=== PATIENT | female | born 1945 | race Caucasian/White ===

== ENCOUNTER 2016-09-07 11:10 | Emergency (ER) | payer MEDICARE ==
[2016-09-07] VITALS (12 sets, daily range): BP systolic 170–213; BP diastolic 65–83; PULSE 50–63; RESP 16–20; TEMP 97.7; O2SAT 95–100
[~2016-09-07] VITALS: Ht 154.9 cm; Wt 69.0 kg
[~2016-09-07 11:10] MED LIST: CLAR10TA7 PO; ESTR1TAB12 PO; LISI40TA PO; LOVA40TA PO; MACR100C PO; PROP1TAB66 PO; RANI150T PO
[2016-09-07] MEDS ORDERED: PROP10TA6 PO (13:21)
[2016-09-07] MEDS ORDERED: FLUT1SPR5 EACH NARE (13:21)
[2016-09-07] MEDS ORDERED: RANI150T PO (13:21)
[2016-09-07] MEDS ORDERED: LISI40TA PO (13:21)
[2016-09-07] MEDS ORDERED: LOVA40TA PO (13:21)
[2016-09-07] MEDS ORDERED: ESTR1 PO (13:21)
[2016-09-07] MEDS ORDERED: CLAR10CA3 PO (13:21)
[2016-09-07] MEDS ORDERED: ONDANSETRON ODT 4 MG TAB PO ONE (14:45)
[2016-09-07] MEDS ORDERED: cloNIDine HCL 0.1 MG TAB PO ONE ×2 (14:45→15:45)
[2016-09-07] MEDS ORDERED: ACETAMINOPHEN/HYDROcodone 325 MG/5 MG TAB PO ONE (15:45)
[2016-09-07] MEDS ORDERED: MECL-62 PO (15:52)
[2016-09-07] MEDS ORDERED: ZOFR4TAB PO (15:52)
--- NOTE | 2016-09-07 15:53 | PD ---
HPI Chief Complaint: Dizziness Time Seen by Provider: 13:29 Travel History International Travel<30 days: No Contact w/Intl Traveler<30days: No Traveled to known affect area: No History of Present Illness HPI Patient presents with dizziness when she gets up from a seated or laying position. States she feels as if the room is spinning about her. Denies any chest pain shortness of breath urinary or bowel symptoms. Denies any recent illness. States she had associated mild nausea. No history of vertigo. Taking fluids well. PFSH Past Medical History Cardiovascular Problems: Yes (HTN ) High Cholesterol: Yes Chest Pain: Yes Diminished Hearing: No Gastrointestinal Disorders: Yes (GERD) GERD: Yes Hypertension: Yes Neurologic: Yes (BRAIN ANEURYSM ) Respiratory: Yes (SEASONAL ALLERGIES) Immunizations Current: No Migraines: Yes ?: Not Menopausal: Yes : 0 Para: 0 Miscarriage: 0 : 0 Past Surgical History Ear Surgery: Yes ([facility] EAR - 1979 ) Gynecologic Surgery: Yes (COMPLETE HYSTERECTOMY) Hysterectomy: Yes (15 YEARS AGO) Tonsillectomy: Yes Social History Alcohol Use: No Tobacco Use: No Substance Use: No Allergies-Medications (Allergen,Severity, Reaction): Coded Allergies: Erythromycin (Verified Allergy, Severe, RASH, 09/07/16) Sulfa (Verified Allergy, Severe, RASH, 09/07/16) Imitrex (Verified Allergy, Unknown, 09/07/16) Adhesives (Verified Adverse Reaction, Severe, "REDDENED SKIN", 09/07/16) Tetanus Toxoid (Verified Adverse Reaction, Severe, INJECTION SITE SWELLS, 09/07/16) Reported Meds & Prescriptions Reported Meds & Active Scripts Active Reported Claritin (Loratadine) 10 Mg Cap 10 Mg PO DAILY Estrace (Estradiol) 1 Mg Tab 1 Mg PO DAILY Ranitidine (Ranitidine HCl) 150 Mg Tab 150 Mg PO BID Flonase Nasal [place] (Fluticasone Nasal [place]) 50 Mcg/Act [place] 50 Mcg EACH NARE BID Propranolol (Propranolol HCl) 10 Mg Tab 10 Mg PO Q12HR Lovastatin 40 Mg Tab 80 Mg PO DAILY Lisinopril 40 Mg Tab 40 Mg PO DAILY Review of Systems HENT: Positive: Vertigo Gastrointestinal: Positive: Nausea Physical Exam Narrative GENERAL: Well-nourished, well-developed patient. SKIN: Warm and dry. HEAD: Normocephalic. EYES: No scleral icterus. No injection or drainage. NECK: Supple, trachea midline. No JVD or lymphadenopathy. CARDIOVASCULAR: Regular rate and rhythm without murmurs, gallops, or rubs. RESPIRATORY: Breath sounds equal bilaterally. No accessory muscle use. GASTROINTESTINAL: Abdomen soft, non-tender, nondistended. MUSCULOSKELETAL: No cyanosis, or edema. BACK: Nontender without obvious deformity. No CVA tenderness. Data Data Last Documented VS Vital Signs Date Time Temp Pulse Resp B/P Pulse Ox O2 Delivery O2 Flow Rate FiO2 09/07/16 15:18 63 18 199/70 98 Room Air 09/07/16 11:23 97.7 Orders Ecg Monitoring (09/07/16 13:22) Oximetry (09/07/16 13:22) Blood Pressure (09/07/16 13:22) Ondansetron Odt (Zofran Odt) (09/07/16 14:45) Clonidine (Catapres) (09/07/16 14:45) Clonidine (Catapres) (09/07/16 15:45) Acetamin-Hydrocod 325-5 Mg ([place] 5-325 (09/07/16 15:45) MDM Medical Decision Making Medical Screen Exam Complete: Yes Emergency Medical Condition: Yes Differential Diagnosis BPV, urgent hypertension, headache Narrative Course Assessment and plan discussed with patient and at bedside Physician Communication Physician Communication Case discussed and care transferred to Dr Webster Diagnosis Primary Impression: BPV (benign positional vertigo) Qualified Code: H81.10 - BPV (benign positional vertigo), unspecified laterality Additional Impressions: Hypertensive urgency Cephalgia Qualified Code: R51 - Acute nonintractable headache, unspecified headache type Scripts Ondansetron (Zofran)4 Mg Tab4 Mg PO Q6HR PRN (NAUSEA OR VOMITING) #20 TAB Ref 0 Prov:Jesus Cornelius MD 09/07/16 Meclizine 25 Mg Tab25 Mg PO TID PRN (VERTIGO) #30 TAB Ref 0 Prov:Jesus Cornelius MD 09/07/16 Jesus Cornelius MD Sep 07, 2016 15:53
[2016-09-07] MEDS ORDERED: LISINOPRIL 20 MG TAB PO ONE (16:00)
[2016-09-07] MEDS ORDERED: MECLIZINE HCL 25 MG TAB PO ONE (16:00)
--- NOTE | 2016-09-07 16:42 | PD ---
Physical Exam Narrative Received sign out from previous team to follow up with CT brain and reevaluate pt's blood pressure. 71yo F presents with symptoms consistent with vertigo. States she felt room spinning after getting up from lying position along with nausea. Pt also found to have elevated blood pressure here. Initial BP was 213/83. Pt was given zofran, clonidine 0.1mg PO x2, lisinopril 40mg PO, lortab x1, and meclizine 25mg PO by previous team. Pt was evaluated at bedside by me and states that her headache has resolved after lortab. States it felt like her usual headache and it has been about 10 days. States she has history of brain aneurysm but it is so small that surgical intervention was not necessary. Pt follows with neurologist closely and had CT last year. Denies any focal neurologic deficits. CT brain negative. Pt reevaluated at bedside and wants to go home. States her symptoms has resolved and she will follow up with PMD. BP is now 173 /71. Strict return precautions given. Data Data Last Documented VS Vital Signs Date Time Temp Pulse Resp B/P Pulse Ox O2 Delivery O2 Flow Rate FiO2 09/07/16 17:03 50 18 173/71 98 Room Air 09/07/16 11:23 97.7 Orders Ecg Monitoring (09/07/16 13:22) Oximetry (09/07/16 13:22) Blood Pressure (09/07/16 13:22) Ondansetron Odt (Zofran Odt) (09/07/16 14:45) Clonidine (Catapres) (09/07/16 14:45) Clonidine (Catapres) (09/07/16 15:45) Acetamin-Hydrocod 325-5 Mg ([place] 5-325 (09/07/16 15:45) Meclizine (Antivert) (09/07/16 16:00) Lisinopril (Prinivil) (09/07/16 16:00) Ct Brain W/O Iv Contrast(Rout) (09/07/16 ) [facility] Supervised Visit with MOISES: No Diagnosis Primary Impression: BPV (benign positional vertigo) Qualified Code: H81.10 - BPV (benign positional vertigo), unspecified laterality Additional Impressions: Hypertensive urgency Cephalgia Qualified Code: R51 - Acute nonintractable headache, unspecified headache type Patient Instructions: General Instructions Departure Forms: Tests/Procedures Additional Instruction: Please follow up with PMD in 1-2 days. Return to the ED if symptoms worsen. Med/Other Pt SpecificInfo: Prescription(s) given Scripts Ondansetron (Zofran)4 Mg Tab4 Mg PO Q6HR PRN (NAUSEA OR VOMITING) #20 TAB Ref 0 Prov:Jesus Cornelius MD 09/07/16 Meclizine 25 Mg Tab25 Mg PO TID PRN (VERTIGO) #30 TAB Ref 0 Prov:Jesus Cornelius MD 09/07/16 Disposition: 01 DISCHARGE HOME Condition: Stable Nita Webster Sep 07, 2016 16:42
--- NOTE | 2016-09-07 16:57 | RADHPO ---
EXAM DATE/TIME: 09/07/2016 16:37 [facility] COMPARISON: No previous studies available for comparison. INDICATIONS : Cephaliga. RADIATION DOSE: 59.88 CTDIvol (mGy) MEDICAL HISTORY : Cardiovascular disease. SURGICAL HISTORY : None. ENCOUNTER: Initial ACUITY: 1 day PAIN SCALE: 2/10 LOCATION: cranial TECHNIQUE: Multiple contiguous axial images were obtained of the head. Using automated exposure control and adj ustment of the mA and/or kV according to patient size, radiation dose was kept as low as reasonably a chievable to obtain optimal diagnostic quality images. FINDINGS: CEREBRUM: The ventricles are normal for age. No evidence of midline shift, mass lesion, hemorrhage or acute in farction. No extra-axial fluid collections are seen. POSTERIOR FOSSA: The cerebellum and brainstem are intact. The 4th ventricle is midline. The cerebellopontine angle i s unremarkable. EXTRACRANIAL: The visualized portion of the orbits is intact. SKULL: The calvaria is intact. No evidence of skull fracture. CONCLUSION: Negative noncontrast head CT. Michael Stratton MD on September 07, 2016 at 16:54 Board Certified Radiologist. This report was verified electronically.
== END 2016-09-07 17:40 | disposition home or self-care (01) ==
LOC: PHED 11:10
DX: H81.10 Benign paroxysmal vertigo, unspecified ear (principal); R51 Headache; I16.0 Hypertensive urgency; E78.00 Pure hypercholesterolemia, unspecified; K21.9 Gastro-esophageal reflux disease without esophagitis
CPT/HCPCS: 70450

== ENCOUNTER 2016-09-15 22:49 | Emergency (ER) | payer MEDICARE ==
[~2016-09-15] VITALS: Ht 154.9 cm; Wt 70.0 kg
[~2016-09-15 22:49] MED LIST changes: +CLAR10CA3 PO; -CLAR10TA7 PO; +ESTR1 PO; -ESTR1TAB12 PO; +FLUT1SPR5 EACH NARE; -MACR100C PO; +MECL-62 PO; +PROP10TA6 PO; -PROP1TAB66 PO; +ZOFR4TAB PO
[2016-09-15 22:53] VITALS: BP 224/98; PULSE 72; RESP 16; TEMP 97.5; O2SAT 100
[2016-09-15 23:12] VITALS: BP_SYST 210; BP_SYST 243; BP_DIAS 105; BP_DIAS 96; PULSE 63; RESP 18; O2SAT 99
[2016-09-15 23:17] VITALS: O2SAT 98
[2016-09-15 23:33] LABS: AUTOMATED NEUTROPHIL # 5.1 TH/MM3 (1.8-7.7); BASOPHIL # 0.1 TH/MM3 (0-0.2); BASOPHIL % 0.8 % (0.0-2.0); EOSINOPHIL # 0.4 TH/MM3 (0-0.4); EOSINOPHIL % 4.1 % (0.0-4.0); HEMATOCRIT 37.6 % (35.0-46.0); HEMO FLAGS DIFF FINAL; LYMPHOCYTE # 2.9 TH/MM3 (1.0-4.8); MEAN CELL VOLUME 85.2 FL (80.0-100.0); MEAN CORPUSCULAR HEMOGLOBIN 27.7 PG (27.0-34.0); MEAN CORPUSCULAR HGB CONC 32.5 % (32.0-36.0); MONO % 7.5 % (0.0-8.0); NEUT % 55.6 % (16.0-70.0); PLATELET COUNT 229 TH/MM3 (150-450); RED BLOOD COUNT 4.42 MIL/MM3 (4.00-5.30); RED CELL DISTRIBUTION WIDTH 13.9 % (11.6-17.2); WHITE BLOOD COUNT 9.1 TH/MM3 (4.0-11.0)
--- NOTE | 2016-09-15 23:34 | PD ---
HPI Chief Complaint: Abdominal Pain Time Seen by Provider: 23:02 Travel History International Travel<30 days: No Contact w/Intl Traveler<30days: No Traveled to known affect area: No History of Present Illness HPI The patient is a 71 year old female who presents to the [facility] emergency department with a history of 3 different concerns. The first concern that the patient reports his proximal land hour after eating dinner at 5 to 5: 30 PM she began to have abdominal pain. She reports the pain was an aching and burning sensation below the umbilicus that was constant until she got in the car to come to the emergency department. She reports that she did take one Tums prior to arrival. The patient's second concern that she reports today is her elevated blood pressure. The patient arrives with a blood pressure of 200. The patient reports that she was noted to have an elevated blood pressure when she was last seen in the emergency department with dizziness. She reports that her third concern is that she developed dizziness 8 days ago. The patient reports that the dizziness has improved since the onset, however she is concerned that she is intermittently a chest pain since then. She is unsure exactly how many times she's had the chest pain happened. She reports that it is on the left side of the chest. She reports that she has an area there that is tender to the touch intermittently. She denies having any shortness of breath. The patient denies any recent fevers, cough, congestion, neck pain, vomiting, diarrhea, urinary symptoms, or neurologic symptoms. PFSH Past Medical History Narrative Medical The patient's past medical history is significant for acid reflux, hypertension , hyperlipidemia, reported small brain aneurysm that she reports was so small on previous evaluation that it has not required surgery, history of seasonal allergies, migraine headaches. Cardiovascular Problems: Yes (HTN) High Cholesterol: Yes Chest Pain: Yes Diminished Hearing: No Gastrointestinal Disorders: Yes (GERD) GERD: Yes Hypertension: Yes Neurologic: Yes (BRAIN ANEURYSM ) Respiratory: Yes (SEASONAL ALLERGIES) Immunizations Current: No Migraines: Yes Tetanus Vaccination: Unknown Influenza Vaccination: No Menopausal: Yes : 0 Para: 0 Miscarriage: 0 : 0 Past Surgical History Narrative Surgical The patient's past surgical history is significant for left ear surgery, complete hysterectomy, tonsillectomy. Ear Surgery: Yes (L. EAR 1979 ) Gynecologic Surgery: Yes (COMPLETE HYSTERECTOMY) Hysterectomy: Yes Tonsillectomy: Yes Social History Alcohol Use: No Tobacco Use: No Substance Use: No Allergies-Medications (Allergen,Severity, Reaction): Coded Allergies: Erythromycin (Verified Allergy, Severe, RASH, 09/15/16) Sulfa (Verified Allergy, Severe, RASH, 09/15/16) Imitrex (Verified Allergy, Unknown, 09/15/16) Adhesives (Verified Adverse Reaction, Severe, "REDDENED SKIN", 09/15/16) Tetanus Toxoid (Verified Adverse Reaction, Severe, INJECTION SITE SWELLS, 09/15/16) Reported Meds & Prescriptions Reported Meds & Active Scripts Active Reported Claritin (Loratadine) 10 Mg Cap 10 Mg PO DAILY Estrace (Estradiol) 1 Mg Tab 1 Mg PO DAILY Ranitidine (Ranitidine HCl) 150 Mg Tab 150 Mg PO BID Propranolol (Propranolol HCl) 10 Mg Tab 10 Mg PO Q12HR Lovastatin 40 Mg Tab 80 Mg PO DAILY Lisinopril 40 Mg Tab 40 Mg PO DAILY Review of Systems Except as stated in HPI: all other systems reviewed are Neg General / Constitutional: No: Fever Eyes: No: Visual changes HENT: No: Headaches Cardiovascular: Positive: Chest Pain or Discomfort, No: Dyspnea on exertion Respiratory: No: Shortness of Breath Gastrointestinal: Positive: Abdominal Pain, No: Nausea, Vomiting, Diarrhea, Changes in Bowel Habits, Indigestion, Loss of Appetite Genitourinary: No: Dysuria Musculoskeletal: No: Pain Skin: No Rash Neurologic: Positive: Dizziness, No: Weakness, Focal Abnormalities, Coordination Problem, Change in Mentation, Slurred Speech, Sensory Disturbance Psychiatric: No: Depression Endocrine: No: Polydipsia Hematologic/Lymphatic: No: Easy Bruising Physical Exam Narrative General: The patient is a well-developed well-nourished female in no acute distress, initial blood pressure is 224/98, however on my arrival to the room the patient' s blood pressure is 201 systolic. Head and Neck exam: Head is normocephalic atraumatic. Eyes: EOMI, pupils are equal round and reactive to light. Nose: Midline septum with pink mucous membranes Mouth: Dentition unremarkable. Moist mucus membranes. Posterior oropharynx is not erythematous. No tonsillar hypertrophy. Uvula midline. Airway patent. Neck: No palpable lymphadenopathy. No nuchal rigidity. No thyromegaly. Cardiovascular: Regular rate and rhythm without murmurs, gallops, or rubs. No pulse deficit to the extremities. Lungs: Clear to auscultation bilaterally. No wheezes, rhonchi, or rales. Abdomen: Soft, with reported discomfort on deep palpation of the area just below the umbilicus. No other tenderness on palpation of the other quadrants of the abdomen No guarding, rebound, or rigidity. No pulsatile mass on palpation. Normal bowel sounds are audible. No tenderness on palpation of McBurney's point. Negative Lemus's sign. Extremities: No clubbing, cyanosis, or edema. 2+ pulses that palpate equally in all 4 extremities. No calf tenderness on palpation. Back: No spinous process tenderness to palpation. No costovertebral angle tenderness to palpation. Neurologic Exam: Grossly nonfocal. Skin Exam: No rash noted. Intact skin that is warm and dry. Data Data Last Documented VS Vital Signs Date Time Temp Pulse Resp B/P Pulse Ox O2 Delivery O2 Flow Rate FiO2 09/16/16 01:28 158/69 09/16/16 01:07 68 18 100 Room Air 09/15/16 22:53 97.5 Orders Electrocardiogram (09/15/16 23:13) Complete Blood Count With Diff (09/15/16 23:13) Comprehensive Metabolic Panel (09/15/16 23:13) Prothrombin Time / Inr (Pt) (09/15/16 23:13) Act Partial Throm Time (Ptt) (09/15/16 23:13) C-Reactive Protein (Crp) (09/15/16 23:13) Lipase (09/15/16 23:13) Urinalysis - C+S If Indicated (09/15/16 23:13) Iv Access Insert/Monitor (09/15/16 23:13) Ecg Monitoring (09/15/16 23:13) Oximetry (09/15/16 23:13) Lactic Acid (09/15/16 23:13) Creatine Kinase (Cpk) (09/15/16 23:20) Ckmb (Isoenzyme) Profile (09/15/16 23:20) Troponin I (09/15/16 23:20) Chest, Single Ap (09/15/16 23:20) Cta Thor Abd Aorta W Iv C W3d (09/15/16 23:54) Iohexol 350 Inj (Omnipaque 350 Inj) (09/16/16 00:29) Labetalol Inj (Trandate Inj) (09/16/16 00:45) Labs Laboratory Tests Test 09/15/16 09/15/16 09/15/16 00:20 23:20 23:25 Urine Color LIGHT-YELLOW Urine Turbidity CLEAR Urine pH 6.0 Urine Specific [place] 1.006 Urine Protein NEG mg/dL Urine Glucose (UA) NEG mg/dL Urine Ketones NEG mg/dL Urine Occult Blood NEG Urine Nitrite NEG Urine Bilirubin NEG Urine Urobilinogen LESS THAN 2.0 MG/DL Urine Leukocyte Esterase NEG Urine RBC LESS THAN 1 /hpf Urine WBC LESS THAN 1 /hpf Urine Squamous Epithelial 1 /hpf Cells Urine Bacteria MOD /hpf Urine Mucus FEW /lpf Microscopic Urinalysis Comment CULT NOT INDICATED White Blood Count 9.1 TH/MM3 Red Blood Count 4.42 MIL/MM3 Hemoglobin 12.2 GM/DL Hematocrit 37.6 % Mean Corpuscular Volume 85.2 FL Mean Corpuscular Hemoglobin 27.7 PG Mean Corpuscular Hemoglobin 32.5 % Concent Red Cell Distribution Width 13.9 % Platelet Count 229 TH/MM3 Mean Platelet Volume 8.4 FL Neutrophils (%) (Auto) 55.6 % Lymphocytes (%) (Auto) 32.0 % Monocytes (%) (Auto) 7.5 % Eosinophils (%) (Auto) 4.1 % Basophils (%) (Auto) 0.8 % Neutrophils # (Auto) 5.1 TH/MM3 Lymphocytes # (Auto) 2.9 TH/MM3 Monocytes # (Auto) 0.7 TH/MM3 Eosinophils # (Auto) 0.4 TH/MM3 Basophils # (Auto) 0.1 TH/MM3 CBC Comment DIFF FINAL Differential Comment Prothrombin Time 10.3 SEC Prothromb Time International 0.9 RATIO Ratio Activated Partial 26.2 SEC Thromboplast Time Sodium Level 142 MEQ/L Potassium Level 4.0 MEQ/L Chloride Level 107 MEQ/L Carbon Dioxide Level 27.7 MEQ/L Anion Gap 7 MEQ/L Blood Urea Nitrogen 15 MG/DL Creatinine 1.13 MG/DL Estimat Glomerular Filtration 48 ML/MIN Rate Random Glucose 89 MG/DL Calcium Level 8.8 MG/DL Total Bilirubin 0.4 MG/DL Aspartate Amino Transf 17 U/L (AST/SGOT) Alanine Aminotransferase 19 U/L (ALT/SGPT) Alkaline Phosphatase 74 U/L Total Creatine Kinase 56 U/L Troponin I LESS THAN 0.02 NG/ML C-Reactive Protein 1.30 MG/DL Total Protein 6.8 GM/DL Albumin 3.1 GM/DL Lipase 280 U/L Lactic Acid Level 0.7 mmol/L MDM Medical Decision Making Medical Screen Exam Complete: Yes Emergency Medical Condition: Yes Medical Record Reviewed: Yes Interpretation(s) Last Impressions Aorta CTA 09/15/16 [id number] Signed Impressions: Service Date/Time: Friday, September 16, 2016 00:19 - CONCLUSION: 1. Calcified lymph nodes in the mediastinum and right hilar region 2. No evidence for aneurysm or aortic dissection. Case Pederson MD Chest X-Ray 09/15/16 [id number] Signed Impressions: Service Date/Time: Friday, September 16, 2016 00:01 - CONCLUSION: No acute disease. Case Pederson MD Differential Diagnosis Aortic dissection, versus acute coronary syndrome, versus trapped gas, versus dyspepsia Narrative Course During the course of the patients emergency department visit, the patients history, examination, and differential diagnosis were reviewed with the patient. The patient had IV access obtained and blood work sent for analysis. The patient was placed on a diagnostic cardiac sonographer with oximetry and blood pressure monitoring. An EKG was done on arrival. The patient's EKG reveals a sinus rhythm heart rate of 63, no acute ST segment elevation or depression. T waves are inverted in V1. The patient was provided labetalol 10 mg IV times one. The patients laboratory studies were reviewed and remarkable for a CBC that shows a white count of 9.1, hemoglobin 12.2, platelets 229 with 4.1 eosinophils , CMP is remarkable for creatinine 1.13, GFR 48, CPK 56, troponin I less than 0.02, C-reactive protein 1.30, albumin 3.1, lipase 280, lactic acid 0.7, PT PTT unremarkable. Urinalysis shows moderate bacteria, culture indicated, no other acute abnormality. Radiology studies were reviewed and remarkable for a chest x-ray that shows no acute abnormality, no active disease, CTA of the aorta reveals calcified lymph nodes in the mediastinum in the right hilar region, no evidence of aneurysm or aortic dissection, no other acute abnormality. The patient's results were discussed with her, her questions were answered. The patient at this time has no chest pain. The patient was offered admission to the chest pain center for rule out serial cardiac enzyme protocol and stress testing as she cannot recall ever having a stress test in the last several years. The patient reports that she does not have any chest pain currently and prefers to follow-up as an outpatient have her primary care doctor refer her for a stress test. She was instructed that if she has a recurrence of chest pain she should report back immediately to the emergency department. The patient was given a copy of her CT scan results to discuss with her primary care physician. The patient's repeat blood pressure is a 150 systolic. The patient was instructed to follow- up with her primary care physician to discuss changes in her blood pressure medication management. The patient reports having resolution of her abdominal pain. The patient is resting comfortably and feels better, is alert and in no distress. The patients results and examination findings were discussed with the patient. The repeat examination is unremarkable and benign. The history, exam, diagnostic testing, and current condition do not suggest any significant pathology to warrant further testing, continued ED treatment, admission, or surgical evaluation at this point. The vital signs have been stable. The patient does not have uncontrollable pain, intractable vomiting, or other significant symptoms. The patient's condition is stable and appropriate for discharge. The patient will pursue further outpatient evaluation with a primary care physician or other designated or consulting physician as indicated in the discharge instructions. The patient expressed understanding and was agreeable with this plan. Diagnosis Primary Impression: Abdominal pain Qualified Code: R10.30 - Lower abdominal pain Additional Impression: Hypertension Qualified Code: I10 - Essential hypertension Admitting Information Admitting Physician Requests: Admit Referrals: Primary Care Physician 2 days Patient Instructions: Abdominal Pain (ED), Chronic Hypertension (ED), General Instructions Med/Other Pt SpecificInfo: No Change to Meds Disposition: 01 DISCHARGE HOME Condition: Stable Chelly Anguiano MD Sep 15, 2016 23:34
[2016-09-15 23:43] LABS: APTT (PATIENT) 26.2 SEC (24.3-30.1); INTERNATIONAL NORMALIZED RATIO 0.9 RATIO; PROTHROMBIN TIME - PATIENT 10.3 SEC (9.8-11.6)
[2016-09-15 23:57] LABS: ANION GAP 7 MEQ/L (5-15); AST (GOT) 17 U/L (15-37); BICARBONATE 27.7 MEQ/L (21.0-32.0); BLOOD UREA NITROGEN 15 MG/DL (7-18); CHLORIDE 107 MEQ/L (98-107); GLOMERULAR FILTRATION RATE 48 ML/MIN (>89); SODIUM (NA) 142 MEQ/L (136-145)
[2016-09-16] LABS: ALKALINE PHOSPHATASE 74 U/L (45-117); ALT (GPT) 19 U/L (10-53); TOTAL BILIRUBIN ADULT 0.4 MG/DL (0.2-1.0)
[2016-09-16 00:11] LABS: CREATINE KINASE 56 U/L (26-192)
[2016-09-16 00:17] VITALS: BP 191/79; PULSE 78; RESP 18; O2SAT 98
[2016-09-16 00:28] LABS: BACTERIA, URINE MOD /hpf; BLOOD, URINE NEG (NEG); COMMENT (UR) CULT NOT INDICATED; CULTURE IF INDICATED CULT NOT INDICATED; GLUCOSE,URINE NEG (NEG); KETONE, URINE NEG (NEG); MUCUS URINE FEW /lpf (OCC); NITRITE,URINE NEG (NEG); SQUAMOUS EPITHELIAL CELL URINE 1 /hpf (0-5); URINE COLOR LIGHT-YELLOW (YELLW/STRAW)
[2016-09-16] MEDS ORDERED: IOHEXOL 350 MG/ML 10 ML VIAL (for RAD DIAG) IV ONE (00:29)
--- NOTE | 2016-09-16 00:29 | RADRPT ---
EXAM DATE/TIME: 09/16/2016 00:01 [facility] COMPARISON: CHEST SINGLE AP, September 22, 2015, 7:14. INDICATIONS : Abdominal pain. MEDICAL HISTORY : Hypertension. SURGICAL HISTORY : None. ENCOUNTER: Initial ACUITY: 1 day PAIN SCORE: 0/10 LOCATION: Bilateral chest FINDINGS: A single view of the chest demonstrates the lungs to be symmetrically aerated without evidence of mas s, infiltrate or effusion. The cardiomediastinal contours are unremarkable. Osseous structures are intact. CONCLUSION: No acute disease. Case Pederson MD on September 16, 2016 at 0:28 Board Certified Radiologist. This report was verified electronically.
[2016-09-16 00:43] VITALS: BP 194/77
[2016-09-16] MEDS ORDERED: LABETALOL HCL 100 MG/20 ML VIAL IV PUSH ONE (00:45)
--- NOTE | 2016-09-16 00:53 | RADRPT ---
EXAM DATE/TIME: 09/16/2016 00:19 [facility] COMPARISON: CHEST SINGLE AP, September 16, 2016, 0:01. INDICATIONS : Diffuse abdominal pain. IV CONTRAST: 75 cc Omnipaque 350 (iohexol) IV RADIATION DOSE: 5.75 CTDIvol (mGy) MEDICAL HISTORY : Hypertension. Gastroesophageal reflux disease. Vertigo. SURGICAL HISTORY : Hysterectomy. Tonsillectomy. ENCOUNTER: Initial ACUITY: 1 week PAIN SCALE: 2/10 LOCATION: Bilateral abdomen TECHNIQUE: Volumetric scanning was performed using a multi-row detector CT scanner. The data was post processed with a variety of visualization algorithms including full volume maximum intensity projection, multi -planar sliding thin slab reformation, curved planar reformation, and surface rendering techniques. Using automated exposure control and adjustment of the mA and/or kV according to patient size, radiat ion dose was kept as low as reasonably achievable to obtain optimal diagnostic quality images. FINDINGS: LUNGS: There is no consolidation or pneumothorax. No concerning pulmonary nodule is visualized. No pleural fluid is present. MEDIASTINUM: There are calcified subcarinal and right hilar lymph nodes identified. ABDOMEN: The liver and spleen are free of focal defects. The gallbladder and pancreas demonstrate no abnormali ty. The adrenal glands are normal. The kidneys demonstrate no evidence of solid renal mass or hydrone phrosis. No free fluid or abdominal masses are identified. No para-aortic adenopathy is seen. PELVIS: No evidence of free fluid or pelvic mass. No abnormally enlarged inguinal or retroperitoneal lymph no sabino are present. The bladder is unremarkable. There is a bone island in the right sacrum. THORACIC AORTA: The thoracic aortic root is normal with normal branching of the great vessels. There is no evidence of aneurysm or dissection. ABDOMINAL AORTA: The aorta is normal in caliber without aneurysm or dissection. The renal arteries are patent bilater ally. The proximal celiac and superior mesenteric arteries are patent and normal in diameter. PELVIC VESSELS: The internal iliac and external iliac vessels are patent without aneurysm or stenosis. CONCLUSION: 1. Calcified lymph nodes in the mediastinum and right hilar region 2. No evidence for aneurysm or aortic dissection. Case Pederson MD on September 16, 2016 at 0:49 Board Certified Radiologist. This report was verified electronically.
[2016-09-16 01:07] VITALS: BP 163/72; PULSE 68; RESP 18; O2SAT 100
[2016-09-16 01:28] VITALS: BP 158/69
--- NOTE | 2016-09-16 14:40 | EKG ---
Date Performed: 09/15/2016 Time Performed: 23:13:08 PTAGE: 71 years EKG: Sinus rhythm NORMAL ECG PREVIOUS TRACING : 09/22/2015 07.30 Compared to prior tracing no significant change DOCTOR: Steve Greene Interpretating Date/Time 09/16/2016 14:38:58
== END 2016-09-16 01:52 | disposition home or self-care (01) ==
LOC: NEPE 22:49
DX: R10.30 Lower abdominal pain, unspecified (principal); I10 Essential (primary) hypertension; K21.9 Gastro-esophageal reflux disease without esophagitis; R42 Dizziness and giddiness; R07.9 Chest pain, unspecified
CPT/HCPCS: 71010; 71275; 74174; 80053; 81001; 82550; 83605; 83690; 84484; 85025; 85610; 85730; 86140; 93005; 96374; 99284; Q9967

== ENCOUNTER 2016-12-10 22:18 | Emergency (ER) | payer MEDICARE ==
[~2016-12-10] VITALS: Ht 154.9 cm; Wt 70.2 kg
[~2016-12-10 22:18] MED LIST changes: -FLUT1SPR5 EACH NARE; -MECL-62 PO; -ZOFR4TAB PO
[2016-12-10 22:34] VITALS: BP 190/84; PULSE 58; RESP 18; TEMP 98
[2016-12-10] MEDS ORDERED: CLON0.1T PO (22:41)
[2016-12-10 22:57] VITALS: BP 208/98
--- NOTE | 2016-12-10 23:08 | PD ---
HPI Chief Complaint: Hypertension Time Seen by Provider: 22:48 Travel History International Travel<30 days: No Contact w/Intl Traveler<30days: No Traveled to known affect area: No History of Present Illness HPI 71yo F with PMH of HTN, small brain aneurysm, GERD here with multiple complaints. States that after bingo, around 9pm, pt started having periorbital numbness, dizziness and frontal headache. Denies any focal weakness or numbness in extremities or face besides around mouth, chest pain, sob, fever, n/ v, abdominal pain. PFSH Past Medical History Cardiovascular Problems: Yes (HTN, High Chloesterol) High Cholesterol: Yes Chest Pain: Yes Diminished Hearing: No Gastrointestinal Disorders: Yes (GERD) GERD: Yes Hypertension: Yes Neurologic: Yes (BRAIN ANEURYSM ) Respiratory: Yes (SEASONAL ALLERGIES) Immunizations Current: No Migraines: Yes Influenza Vaccination: No Menopausal: Yes : 0 Para: 0 Miscarriage: 0 : 0 Past Surgical History Ear Surgery: Yes (L. EAR - 1979 ) Gynecologic Surgery: Yes Hysterectomy: Yes Tonsillectomy: Yes Social History Alcohol Use: No Tobacco Use: No Substance Use: No Allergies-Medications (Allergen,Severity, Reaction): Coded Allergies: Erythromycin (Verified Allergy, Severe, RASH, 12/10/16) Sulfa (Verified Allergy, Severe, RASH, 12/10/16) Imitrex (Verified Allergy, Unknown, 12/10/16) Adhesives (Verified Adverse Reaction, Severe, "REDDENED SKIN", 12/10/16) Tetanus Toxoid (Verified Adverse Reaction, Severe, INJECTION SITE SWELLS, 12/10/16) Reported Meds & Prescriptions Reported Meds & Active Scripts Active Reported Clonidine (Clonidine HCl) 0.1 Mg Tab 0.1 Mg PO BID Estrace (Estradiol) 1 Mg Tab 1 Mg PO DAILY Ranitidine (Ranitidine HCl) 150 Mg Tab 150 Mg PO BID Propranolol (Propranolol HCl) 10 Mg Tab 10 Mg PO Q12HR Lovastatin 40 Mg Tab 80 Mg PO DAILY Lisinopril 40 Mg Tab 40 Mg PO DAILY Review of Systems Except as stated in HPI: all other systems reviewed are Neg Physical Exam Narrative GENERAL: 71yo F not in distress. SKIN: Focused skin assessment warm/dry. HEAD: Atraumatic. Normocephalic. EYES: Pupils equal and round. No scleral icterus. No injection or drainage. ENT: No nasal bleeding or discharge. Mucous membranes pink and moist. NECK: Trachea midline. No JVD. CARDIOVASCULAR: Regular rate and rhythm. No murmur appreciated. RESPIRATORY: No accessory muscle use. Clear to auscultation. Breath sounds equal bilaterally. GASTROINTESTINAL: Abdomen soft, +Mild suprapubic ttp. States only hurts when I press. No rebound tenderness or guarding. MUSCULOSKELETAL: No obvious deformities. No clubbing. No cyanosis. No edema. NEUROLOGICAL: Awake and alert. No obvious cranial nerve deficits. Motor grossly within normal limits. Normal speech. PSYCHIATRIC: Appropriate mood and affect; insight and judgment normal. Data Data Last Documented VS Vital Signs Date Time Temp Pulse Resp B/P Pulse Ox O2 Delivery O2 Flow Rate FiO2 12/10/16 23:56 77 147/67 12/10/16 23:40 99 Room Air 12/10/16 22:[address] Brain W/O Iv Contrast(Rout) (12/10/16 ) Electrocardiogram (12/10/16 ) Complete Blood Count With Diff (12/10/16 23:02) Basic Metabolic Panel (Bmp) (12/10/16 23:02) Ckmb (Isoenzyme) Profile (12/10/16 23:02) Troponin I (12/10/16 23:02) Urinalysis - C+S If Indicated (12/10/16 23:02) Hydralazine Inj (Apresoline Inj) (12/10/16 23:15) Orthostatic Blood Pressure (12/10/16 23:45) Labs Laboratory Tests Test 12/10/16 12/10/16 22:50 23:05 Urine Color YELLOW Urine Turbidity CLEAR Urine pH 6.0 Urine Specific [place] 1.006 Urine Protein NEG mg/dL Urine Glucose (UA) NEG mg/dL Urine Ketones NEG mg/dL Urine Occult Blood TRACE Urine Nitrite NEG Urine Bilirubin NEG Urine Leukocyte Esterase NEG Urine RBC 0-3 /hpf Urine Squamous Epithelial 0-5 /hpf Cells Urine Bacteria OCC /hpf Microscopic Urinalysis Comment CULT NOT INDICATED White Blood Count 9.1 TH/MM3 Red Blood Count 4.24 MIL/MM3 Hemoglobin 11.8 GM/DL Hematocrit 36.0 % Mean Corpuscular Volume 84.9 FL Mean Corpuscular Hemoglobin 27.9 PG Mean Corpuscular Hemoglobin 32.9 % Concent Red Cell Distribution Width 13.3 % Platelet Count 234 TH/MM3 Mean Platelet Volume 7.9 FL Neutrophils (%) (Auto) 58.4 % Lymphocytes (%) (Auto) 30.6 % Monocytes (%) (Auto) 6.9 % Eosinophils (%) (Auto) 3.7 % Basophils (%) (Auto) 0.4 % Neutrophils # (Auto) 5.4 TH/MM3 Lymphocytes # (Auto) 2.8 TH/MM3 Monocytes # (Auto) 0.6 TH/MM3 Eosinophils # (Auto) 0.3 TH/MM3 Basophils # (Auto) 0.0 TH/MM3 CBC Comment DIFF FINAL Differential Comment Sodium Level 142 MEQ/L Potassium Level 3.9 MEQ/L Chloride Level 108 MEQ/L Carbon Dioxide Level 25.5 MEQ/L Anion Gap 9 MEQ/L Blood Urea Nitrogen 12 MG/DL Creatinine 1.00 MG/DL Estimat Glomerular Filtration 55 ML/MIN Rate Random Glucose 93 MG/DL Calcium Level 8.5 MG/DL Total Creatine Kinase 59 U/L Troponin I LESS THAN 0.02 NG/ML MDM Medical Decision Making Medical Screen Exam Complete: Yes Emergency Medical Condition: Yes Interpretation(s) EKG: Sinus bradycardia at 51bpm. Normal axis. No ST segment elevation or depression. No prolonged QTc. Differential Diagnosis Anxiety vs. ICH vs. UTI vs. electrolyte abnormality Narrative Course 71yo F well appearing female here with multiple complaints. Labs reviewed, no leukocytosis. H/H normal. Troponin negative. Creatinine 1.0. UA negative for leukocyte or nitrite. Pt was hypertensive with BP at 208/98. Pt given hydralazine 10mg IV and repeat BP was 166/60. CT brain negative. Pt had headache that started [address] brain is 100% sensitive in r/o SAH. Pt reevaluated at bedside and feels much better. States her symptoms have resolved. Denies any dizziness, numbness around lips or headache. Headache may have been related to elevated blood pressure. Return precautions given. Diagnosis Primary Impression: Elevated blood pressure reading Patient Instructions: General Instructions Departure Forms: Tests/Procedures Additional Instructions: Please follow up with your PMD i n1-2 days. Return to the ED if symptoms worsen. Med/Other Pt SpecificInfo: No Change to Meds Disposition: 01 DISCHARGE HOME Condition: Stable Ericka Websterrema PÉREZ Dec 10, 2016 23:08
[2016-12-10] MEDS ORDERED: hydrALAZINE HCL 20 MG/ML VIAL IV PUSH ONE (23:15)
[2016-12-10 23:17] LABS: AUTOMATED NEUTROPHIL # 5.4 TH/MM3 (1.8-7.7); BASOPHIL % 0.4 % (0.0-2.0); EOSINOPHIL # 0.3 TH/MM3 (0-0.4); EOSINOPHIL % 3.7 % (0.0-4.0); HEMO FLAGS DIFF FINAL; LYMPH % 30.6 % (9.0-44.0); LYMPHOCYTE # 2.8 TH/MM3 (1.0-4.8); MEAN CELL VOLUME 84.9 FL (80.0-100.0); MEAN CORPUSCULAR HEMOGLOBIN 27.9 PG (27.0-34.0); MEAN CORPUSCULAR HGB CONC 32.9 % (32.0-36.0); MONO % 6.9 % (0.0-8.0); NEUT % 58.4 % (16.0-70.0); PLATELET COUNT 234 TH/MM3 (150-450); RED BLOOD COUNT 4.24 MIL/MM3 (4.00-5.30); RED CELL DISTRIBUTION WIDTH 13.3 % (11.6-17.2); WHITE BLOOD COUNT 9.1 TH/MM3 (4.0-11.0)
[2016-12-10 23:18] LABS: BLOOD, URINE TRACE (NEG); GLUCOSE,URINE NEG (NEG); KETONE, URINE NEG (NEG); NITRITE,URINE NEG (NEG)
[2016-12-10 23:25] LABS: URINE COLOR YELLOW (YELLW/STRAW)
[2016-12-10 23:26] LABS: BACTERIA, URINE OCC /hpf; SQUAMOUS EPITHELIAL CELL URINE 0-5 /hpf (0-5)
[2016-12-10 23:27] LABS: COMMENT (UR) CULT NOT INDICATED; CULTURE IF INDICATED CULT NOT INDICATED; RBC, URINE 0-3 /hpf (0-3)
[2016-12-10 23:27] LABS: CHLORIDE 108 MEQ/L (98-107); POTASSIUM 3.9 MEQ/L (3.5-5.1); SODIUM (NA) 142 MEQ/L (136-145)
--- NOTE | 2016-12-10 23:28 | RADHPO ---
EXAM DATE/TIME: 12/10/2016 23:06 [facility] COMPARISON: CT BRAIN W/O CONTRAST, September 07, 2016, 16:37. INDICATIONS : Frontal headache. History of aneurysm. RADIATION DOSE: 60.46 CTDIvol (mGy) MEDICAL HISTORY : Aneurysm, intracranial. Hypertension. Cardiovascular disease SURGICAL HISTORY : Hysterectomy. ENCOUNTER: Initial ACUITY: 1 day PAIN SCALE: 2/10 LOCATION: cranial TECHNIQUE: Multiple contiguous axial images were obtained of the head. Using automated exposure control and adj ustment of the mA and/or kV according to patient size, radiation dose was kept as low as reasonably a chievable to obtain optimal diagnostic quality images. FINDINGS: There is no evidence for intracranial hemorrhage, mass effect, mass lesions, edema, or extra-axial fl uid collections. The visualized bony structures appear intact. The ventricles are normal size for t he patient's age. There are no signs of acute infarction for technique. CONCLUSION: Unremarkable study. Moise Yadav MD on December 10, 2016 at 23:25 Board Certified Radiologist. This report was verified electronically.
[2016-12-10 23:30] LABS: ANION GAP 9 MEQ/L (5-15); BICARBONATE 25.5 MEQ/L (21.0-32.0); BLOOD UREA NITROGEN 12 MG/DL (7-18)
[2016-12-10 23:34] LABS: GLOMERULAR FILTRATION RATE 55 ML/MIN (>89)
[2016-12-10 23:40] VITALS: BP 166/60; PULSE 57; O2SAT 99
[2016-12-10 23:53] LABS: CREATINE KINASE 59 U/L (26-192)
[2016-12-10 23:56] VITALS: BP 147/67; PULSE 77
[2016-12-11 00:12] VITALS: BP 135/55; PULSE 70
--- NOTE | 2016-12-11 15:04 | EKG ---
Date Performed: 12/10/2016 Time Performed: 23:32:02 PTAGE: 71 years EKG: SINUS BRADYCARDIA BORDERLINE ECG NO SIGNIFICANT CHANGE FROM PRIOR ELECTROCARDIOGRAM. PREVIOUS TRACING : 09/15/2016 23.13 DOCTOR: Jn Justin Interpretating Date/Time 12/11/2016 15:02:54
== END 2016-12-11 00:25 | disposition home or self-care (01) ==
LOC: PHED 22:18
DX: I10 Essential (primary) hypertension (principal); R00.1 Bradycardia, unspecified; R51 Headache
CPT/HCPCS: 70450; 80048; 81001; 82550; 84484; 85025; 93005; 96374; 99285; J0360

== ENCOUNTER 2017-06-27 09:55 | Observation (INO) | payer MEDICARE ==
[~2017-06-27] VITALS: Ht 154.9 cm; Wt 67.0 kg
[2017-06-27] VITALS (15 sets, daily range): BP systolic 150–231; BP diastolic 69–92; PULSE 52–62; RESP 14–20; TEMP 98–98.2; O2SAT 97–100
[~2017-06-27 09:55] MED LIST changes: -CLAR10CA3 PO; +CLON0.1T PO
[2017-06-27] MEDS ORDERED: SODIUM CHLORIDE 0.9% FLUSH 10 ML FLUSH IVF PRN (10:30)
[2017-06-27] MEDS ORDERED: ASPIRIN 325 MG TAB PO ONE (10:30)
[2017-06-27 10:48] LABS: AUTOMATED NEUTROPHIL # 4.1 TH/MM3 (1.8-7.7); BASOPHIL % 0.5 % (0.0-2.0); EOSINOPHIL # 0.2 TH/MM3 (0-0.4); EOSINOPHIL % 3.5 % (0.0-4.0); HEMATOCRIT 36.9 % (35.0-46.0); LYMPH % 31.3 % (9.0-44.0); LYMPHOCYTE # 2.2 TH/MM3 (1.0-4.8); MEAN CORPUSCULAR HGB CONC 32.6 % (32.0-36.0); MEAN PLATELET VOLUME 8.6 FL (7.0-11.0); MONO % 6.1 % (0.0-8.0); MONOCYTE # 0.4 TH/MM3 (0-0.9); NEUT % 58.6 % (16.0-70.0); PLATELET COUNT 225 TH/MM3 (150-450); RED BLOOD COUNT 4.29 MIL/MM3 (4.00-5.30); RED CELL DISTRIBUTION WIDTH 13.9 % (11.6-17.2)
[2017-06-27 10:53] LABS: PROTHROMBIN TIME - PATIENT 9.9 SEC (9.8-11.6)
--- NOTE | 2017-06-27 10:56 | RADRPT ---
EXAM DATE/TIME: 06/27/2017 10:32 [facility] COMPARISON: CHEST SINGLE AP, September 16, 2016, 0:01. INDICATIONS : Left chest pain. MEDICAL HISTORY : Aneurysm, intracranial. Hypertension Cardiovascular disease. SURGICAL HISTORY : Hysterectomy. ENCOUNTER: Initial ACUITY: 3 days PAIN SCORE: 6/10 LOCATION: Left chest FINDINGS: A single view of the chest demonstrates the lungs to be symmetrically aerated without evidence of mas s, infiltrate or effusion. The cardiomediastinal contours are unremarkable. Osseous structures are intact. CONCLUSION: No acute disease. Mika Ferrera MD on June 27, 2017 at 10:55 Board Certified Radiologist. This report was verified electronically.
[2017-06-27 10:57] LABS: BICARBONATE 26.6 MEQ/L (21.0-32.0); BLOOD UREA NITROGEN 14 MG/DL (7-18); CALCIUM 8.8 MG/DL (8.5-10.1); CHLORIDE 109 MEQ/L (98-107); CREATININE 1.03 MG/DL (0.50-1.00); GLOMERULAR FILTRATION RATE 53 ML/MIN (>89); GLUCOSE,RANDOM 82 MG/DL (74-106); MAGNESIUM 1.9 MG/DL (1.5-2.5); SODIUM (NA) 141 MEQ/L (136-145)
[2017-06-27 11:01] LABS: TROPONIN I LESS THAN 0.02 NG/ML (0.02-0.05)
[2017-06-27] MEDS ORDERED: SODIUM CHLORIDE 0.9% FLUSH 10 ML FLUSH IV FLUSH PRN (12:30)
--- NOTE | 2017-06-27 12:30 | PD ---
HPI Chief Complaint: Neuro Symptoms/ Deficits Time Seen by Provider: 10:05 Travel History International Travel<30 days: No Contact w/Intl Traveler<30days: No Traveled to known affect area: No History of Present Illness HPI The patient's 9 years old and rest the ER complaining of chest pain on the left side with radiation to the left arm and left jaw. She mentioned to the triage nurse that she has a history of an intracranial aneurysm which is known to be on the left side. The patient reports chest pain on the left side as noted which started 3 days prior while she was in her kitchen. She has no shortness of breath. She reports a family history of coronary artery disease. She has hypertension and hyperlipidemia. She denies history of diabetes. There is no exertional component. There is no pleuritic component. No cough or fever reported. PFSH Past Medical History Cardiovascular Problems: Yes (HTN, High Chloesterol) High Cholesterol: Yes Chest Pain: Yes Diminished Hearing: No Gastrointestinal Disorders: Yes (GERD) GERD: Yes Hypertension: Yes Neurologic: Yes (BRAIN ANEURYSM ) Respiratory: Yes (SEASONAL ALLERGIES) Immunizations Current: No Migraines: Yes Tetanus Vaccination: Unknown ?: Not Menopausal: Yes : 0 Para: 0 Miscarriage: 0 : 0 Past Surgical History Ear Surgery: Yes (LErik EAR - 1979 ) Gynecologic Surgery: Yes Hysterectomy: Yes Tonsillectomy: Yes Social History Alcohol Use: No Tobacco Use: No Substance Use: No Allergies-Medications (Allergen,Severity, Reaction): Coded Allergies: Sulfa (Sulfonamide Antibiotics) (Unverified Allergy, Severe, RASH, ) erythromycin base (Unverified Allergy, Severe, RASH, 06/27/17) sumatriptan (Unverified Allergy, Unknown, 06/27/17) adhesive (Unverified Adverse Reaction, Severe, "REDDENED SKIN", 06/27/17) tetanus toxoid, adsorbed (Unverified Adverse Reaction, Severe, INJECTION SITE SWELLS, 06/27/17) Reported Meds & Prescriptions Reported Meds & Active Scripts Active Reported Estrace (Estradiol) 1 Mg Tab 1 Mg PO DAILY Ranitidine (Ranitidine HCl) 150 Mg Tab 150 Mg PO BID Propranolol (Propranolol HCl) 10 Mg Tab 10 Mg PO Q12HR Lovastatin 40 Mg Tab 80 Mg PO DAILY Lisinopril 40 Mg Tab 40 Mg PO DAILY Review of Systems Except as stated in HPI: all other systems reviewed are Neg General / Constitutional: No: Fever Cardiovascular: Positive: Chest Pain or Discomfort, No: Diaphoresis Physical Exam Narrative GENERAL: 72 -year-old female pleasant well-nourished well-developed SKIN: Focused skin assessment warm/dry. HEAD: Atraumatic. Normocephalic. EYES: Pupils equal and round. No scleral icterus. No injection or drainage. ENT: No nasal bleeding or discharge. Mucous membranes pink and moist. NECK: Trachea midline. No JVD. CARDIOVASCULAR: Regular rate and rhythm. No murmur appreciated. RESPIRATORY: No accessory muscle use. Clear to auscultation. Breath sounds equal bilaterally. GASTROINTESTINAL: Abdomen soft, non-tender, nondistended. Hepatic and splenic margins not palpable. MUSCULOSKELETAL: No obvious deformities. No clubbing. No cyanosis. No edema. NEUROLOGICAL: There is no focal cranial nerve deficit. The motor function is all 4 extremities. Cerebellar function is normal. Speech memory mentation normal. PSYCHIATRIC: Appropriate mood and affect; insight and judgment normal. Data Data Last Documented VS Vital Signs Date Time Temp Pulse Resp B/P (MAP) Pulse Ox O2 Delivery O2 Flow Rate FiO2 06/27/17 10:41 53 06/27/17 10:40 189/77 (114) 06/27/17 10:23 14 100 Room Air 06/27/17 09:57 98.2 Vital signs reviewed Orders Orders Electrocardiogram (06/27/17 10:16) Basic Metabolic Panel (Bmp) (06/27/17 10:16) Ckmb (Isoenzyme) Profile (06/27/17 10:16) Complete Blood Count With Diff (06/27/17 10:16) Magnesium (Mg) (06/27/17 10:16) Prothrombin Time / Inr (Pt) (06/27/17 10:16) Act Partial Throm Time (Ptt) (06/27/17 10:16) Troponin I (06/27/17 10:16) Chest, Single Ap (06/27/17 10:16) Ecg Monitoring (06/27/17 10:16) Bilateral Bp Monitoring (06/27/17 10:16) Iv Access Insert/Monitor (06/27/17 10:16) Oximetry (06/27/17 10:16) Oxygen Administration (06/27/17 10:16) Aspirin (Aspirin) (06/27/17 10:30) Sodium Chloride 0.9% Flush (Ns Flush) (06/27/17 10:30) Activity Bed Rest With Brp (06/27/17 12:27) Cardiac Rhythm .As Directed (06/27/17 12:27) Notify Dr: Other .PRN (06/27/17 12:27) Notify Dr. Parameters (06/27/17 12:27) Resp Oxygen Nasal Cannula (06/27/17 ) Ckmb (Isoenzyme) Profile (06/27/17 12:27) Ckmb (Isoenzyme) Profile (06/27/17 15:27) Troponin I (06/27/17 12:27) Troponin I (06/27/17 15:27) Electrocardiogram (06/27/17 12:27) Electrocardiogram (06/27/17 15:27) ^ Obtain (06/27/17 12:27) Sodium Chloride 0.9% Flush (Ns Flush) (06/27/17 12:30) Sodium Chloride 0.9% Flush (Ns Flush) (06/27/17 21:00) [employer] / Telemetry [id number] (06/27/17 12:27) Admit Order (Ed Use Only) (06/27/17 12:27) Vital Signs (Adult) Q4H (06/27/17 12:27) Labs Laboratory Tests Test 06/27/17 10:30 White Blood Count 7.0 TH/MM3 Red Blood Count 4.29 MIL/MM3 Hemoglobin 12.0 GM/DL Hematocrit 36.9 % Mean Corpuscular Volume 86.0 FL Mean Corpuscular Hemoglobin 28.0 PG Mean Corpuscular Hemoglobin Concent 32.6 % Red Cell Distribution Width 13.9 % Platelet Count 225 TH/MM3 Mean Platelet Volume 8.6 FL Neutrophils (%) (Auto) 58.6 % Lymphocytes (%) (Auto) 31.3 % Monocytes (%) (Auto) 6.1 % Eosinophils (%) (Auto) 3.5 % Basophils (%) (Auto) 0.5 % Neutrophils # (Auto) 4.1 TH/MM3 Lymphocytes # (Auto) 2.2 TH/MM3 Monocytes # (Auto) 0.4 TH/MM3 Eosinophils # (Auto) 0.2 TH/MM3 Basophils # (Auto) 0.0 TH/MM3 CBC Comment DIFF FINAL Differential Comment Prothrombin Time 9.9 SEC Prothromb Time International Ratio 1.0 RATIO Activated Partial Thromboplast Time 24.7 SEC Blood Urea Nitrogen 14 MG/DL Creatinine 1.03 MG/DL Random Glucose 82 MG/DL Calcium Level 8.8 MG/DL Magnesium Level 1.9 MG/DL Sodium Level 141 MEQ/L Potassium Level 4.0 MEQ/L Chloride Level 109 MEQ/L Carbon Dioxide Level 26.6 MEQ/L Anion Gap 5 MEQ/L Estimat Glomerular Filtration Rate 53 ML/MIN Total Creatine Kinase 47 U/L Troponin I LESS THAN 0.02 NG/ML MDM Medical Decision Making Medical Screen Exam Complete: Yes Emergency Medical Condition: Yes Medical Record Reviewed: Yes Differential Diagnosis NSTEMI, unstable angina, coronary vasospasm, PE, PTX, aortic dissection, pericarditis, myocarditis, endocarditis, PNA, esophageal disease, aneurysm, musculoskeletal etiologies, anxiety, cocaine/sympathomimetic abuse Narrative Course CBC & BMP Diagram 06/27/17 10:30 Calcium Level 8.8, Magnesium Level 1.9 EKG shows sinus rhythm with a rate of 52 normal axis and intervals and no ischemic injury pattern The troponin is less than 0.02 The patient given the risk factors including family history hypertension hyperlipidemia and left-sided chest pain and hand involvement jaw involvement stands to benefit from [facility] protocol. Aneurysm on L side. Pt agreeable with plan. Diagnosis Primary Impression: Chest pain Qualified Codes: R07.9 - Chest pain, unspecified Admitting Information Admitting Physician Requests: Observation Tre Lee MD Jun 27, 2017 12:30
[2017-06-27] MEDS ORDERED: ONDANSETRON HCL 4 MG/2 ML VIAL IV PUSH PRN (12:45)
[2017-06-27] MEDS ORDERED: ACETAMINOPHEN 500 MG CPLT PO PRN (12:45)
[2017-06-27] MEDS ORDERED: NITROGLYCERIN 0.4 MG SL 25 TABS/BTL SL PRN (12:45)
--- NOTE | 2017-06-27 13:25 | HHI.HP ---
HPI Primary Care Physician Whit Frazier MD Chief Complaint Chest discomfort History of Present Illness 72 year old female with known hypertension and hyperlipidemia presents to ER for further evaluation of multiple complaints. First complaint is x3 days of intermittent, left anterior chest discomfort, non radiating discomfort, characterized a "tingling, shooting pain." Duration generally "only seconds" and without associated symptoms. Reports noticing shooting pains generally in the evening hours. Mild in severity. No known precipitating or relieving factors. Endorses similar discomfort in the past. Tried Tums without relief as she thought discomfort maybe ingestion. Second complaint x7 days chest tightness. States "it felt like my bra was too tight." Duration all day, each day past week. No known precipitating factors. Relieving factors removing bra, reports discomfort quickly resolved after removing to changing to a sports bra. No associated symptoms of N, V, SOB, or diaphoresis. Denies similar pain in the past. No precipitating or relieving factors of chest tightness. Final complaint includes numbness and tinging of left side of mouth and cheek. Initially numbness occurred intermittent x3 days. She relating numbness to possible elevated bp due to previous similar episodes. Took BP at home and reports 161/52, therefore did not take clonidine PRN she has ordered. Duration of left side numbness has been constant since last evening and persisting. Denies any headache, slurred speech, weakness of extremities, vision changes, or dysphasia. Currently she is chest pain free. Due to duration and multiple complaints, she became concerned and came to ER for further evaluation. Review of Systems General: No fatigue,weakness, fever, chills, or recent illness change in appetite. Has been in her general state of health. HEENT: No [place], no vision changes, no nasal congestion or drainage, no dysphasia CV: As stated above. No current chest pain, tightness, or pressure. RESP: No SOB, cough, wheeze, or recent URI. GI: No nausea, vomiting, bowel changes, diarrhea, constipation, pain, distention. No unintentional weight gain or weight loss. : No dysuria, urgency, frequency EXT: Paraesthesias of left side of mouth and cheek since last evening. No lower leg edema MS: No discomfort, change in ROM NEURO: No change in memory, dizziness, difficulty with balance, LOC, motor/ sensory deficits. History of cerebral aneurysm PSYCH: No anxiety, depression SKIN: No rashes, no concerning lesions Past Family Social History Allergies: Coded Allergies: Sulfa (Sulfonamide Antibiotics) (Unverified Allergy, Severe, RASH, ) erythromycin base (Unverified Allergy, Severe, RASH, 06/27/17) sumatriptan (Unverified Allergy, Unknown, 06/27/17) adhesive (Unverified Adverse Reaction, Severe, "REDDENED SKIN", 06/27/17) tetanus toxoid, adsorbed (Unverified Adverse Reaction, Severe, INJECTION SITE SWELLS, 06/27/17) Past Medical History Hypertension, hyperlipidemia, migraines, brain aneurysm, GERD Past Surgical History Hysterectomy, Left trigger finger sx, Left ear sx. Reported Medications Active Reported Estrace (Estradiol) 1 Mg Tab 1 Mg PO DAILY Ranitidine (Ranitidine HCl) 150 Mg Tab 150 Mg PO BID Propranolol (Propranolol HCl) 10 Mg Tab 10 Mg PO Q12HR Lovastatin 40 Mg Tab 80 Mg PO DAILY Lisinopril 40 Mg Tab 40 Mg PO DAILY Active Ordered Medications Current Medications Medications (Trade) Dose Ordered Sig/Nikolas Route Start Time Stop Time Status Last Admin (NS Flush) 2 ml UNSCH PRN IV FLUSH 06/27/17 12:30 (NS Flush) 2 ml BID IV FLUSH 06/27/17 21:00 (Tylenol) 500 mg Q4H PRN PO 06/27/17 12:45 (Zofran Inj) 4 mg Q6H PRN IV PUSH 06/27/17 12:45 (Nitrostat Sl) 0.4 mg Q5M PRN SL 06/27/17 12:45 (Aspirin) 325 mg DAILY PO 06/28/17 09:00 (Catapres) 0.1 mg ONCE ONCE PO 06/27/17 13:30 06/27/17 13:31 UNV Non-Formulary Medication 40 mg DAILY PO 06/27/17 13:30 UNV Family History Mother [place] in early 60s, age 74 [place]. Brother CABG in his early 50s. Sister age 49 from [place] (possible congenital abnormality). Social History Known hypertension and hyperlipidemia. No known CAD or DM. Lifelong nonsmoker. Denies any alcohol or illegal drug use. . Retired. Active, reports walking x3 daily one mile each walk. Past cardiac testing 10/21/13 Lexiscan-1. No significant reversibility to suggest ischemia. 2. Normal wall motion, EF 60%. 12/04/02 Cardiac catheterization. Conclusions: No significant coronary artery disease. Physical Exam Vital Signs Vital Signs Date Time Temp Pulse Resp B/P (MAP) Pulse Ox O2 Delivery O2 Flow Rate FiO2 06/27/17 10:41 53 06/27/17 10:40 52 189/77 (114) 06/27/17 10:23 55 14 228/92 (137) 100 Room Air 06/27/17 10:23 100 Room Air 06/27/17 09:57 98.2 62 18 231/92 (138) 98 Room Air Physical Exam GENERAL: Alert WN, WD, NAD, pleasant, elderly female HEAD: NC, AT EYES: Sclera clear, conjunctiva without injection, pupils equal and round ENT: Mucous membranes pink and moist, no nasal discharge or bleeding NECK: Supple, no masses, trachea midline CV: RRR, without murmur, rub, gallop, no JVD, S1-S2 no S3-S4. No carotid bruits. RESP: Clear lungs throughout bilateral, no crackles, wheeze, rhonchi, symmetrical chest rise, nonlabored, able to speak in full sentences ABD: Soft, NT, ND, no masses, positive bowel tones EXT: Pulses +24, no dependent edema MS: Normal tone 4 extremities, nontender, no obvious deformities, full range of motion NEURO: CN II through CN XII grossly intact, motor strength 5/5 equally, no facial droop. PSYCH: A+O 3, pleasant affect, appropriate speech, mood, insight and judgment SKIN: Normal turgor, normal texture, no lesions, no rashes, brisk cap refill, even hair distribution Laboratory Laboratory Tests Test 06/27/17 10:30 White Blood Count 7.0 Red Blood Count 4.29 Hemoglobin 12.0 Hematocrit 36.9 Mean Corpuscular Volume 86.0 Mean Corpuscular Hemoglobin 28.0 Mean Corpuscular Hemoglobin Concent 32.6 Red Cell Distribution Width 13.9 Platelet Count 225 Mean Platelet Volume 8.6 Neutrophils (%) (Auto) 58.6 Lymphocytes (%) (Auto) 31.3 Monocytes (%) (Auto) 6.1 Eosinophils (%) (Auto) 3.5 Basophils (%) (Auto) 0.5 Neutrophils # (Auto) 4.1 Lymphocytes # (Auto) 2.2 Monocytes # (Auto) 0.4 Eosinophils # (Auto) 0.2 Basophils # (Auto) 0.0 CBC Comment DIFF FINAL Differential Comment Prothrombin Time 9.9 Prothromb Time International Ratio 1.0 Activated Partial Thromboplast Time 24.7 Blood Urea Nitrogen 14 Creatinine 1.03 Random Glucose 82 Calcium Level 8.8 Magnesium Level 1.9 Sodium Level 141 Potassium Level 4.0 Chloride Level 109 Carbon Dioxide Level 26.6 Anion Gap 5 Estimat Glomerular Filtration Rate 53 Total Creatine Kinase 47 Troponin I LESS THAN 0.02 Result Diagram: 06/27/17 1030 06/27/17 1030 Imaging Last Impressions Chest X-Ray 06/27/17 1016 Signed Impressions: Service Date/Time: Tuesday, June 27, 2017 10:32 - CONCLUSION: No acute disease. Mika Ferrera MD Course EKG NSR, normal axis, no st t segment changes Caprini VTE Risk Assessment Caprini VTE Risk Assessment: Mod/High Risk (score >= 2) Caprini Risk Assessment Model Point Value = 1 Point Value = 2 Point Value = 3 Point Value = 5 Age 41-60 Minor surgery BMI > 25 kg/m2 Swollen legs Varicose veins or History of unexplained or recurrent spontaneous Oral contraceptives or hormone replacement Sepsis (< 1 month) Serious lung disease, including pneumonia (< 1 month) Abnormal pulmonary function Acute myocardial infarction Congestive heart failure (< 1 month) History of inflammatory bowel disease Medical patient at bed rest Age 61-74 Arthroscopic surgery Major open surgery (> 45 min) Laparoscopic surgery (> 45 min) Malignancy Confined to bed (> 72 hours) Immobilizing plaster cast Central venous access Age >= 75 History of VTE Family history of VTE Factor V Leiden Prothrombin [id number] Lupus anticoagulant Anticardiolipin antibodies Elevated serum homocysteine Heparin-induced thrombocytopenia Other congenital or acquired thrombophilia Stroke (< 1 month) Elective arthroplasty Hip, pelvis, or leg fracture Acute spinal cord injury (< 1 month) Prophylaxis Regimen Total Risk Factor Score Risk Level Prophylaxis Regimen 0-1 Low Early ambulation 2 Moderate Order ONE of the following: *Sequential Compression Device (SCD) *Heparin 5000 units SQ BID 3-4 Higher Order ONE of the following medications: *Heparin 5000 units SQ TID *Enoxaparin/Lovenox 40 mg SQ daily (WT < 150 kg, CrCl > 30 mL/min) *Enoxaparin/Lovenox 30 mg SQ daily (WT < 150 kg, CrCl > 10-29 mL/min) *Enoxaparin/Lovenox 30 mg SQ BID (WT < 150 kg, CrCl > 30 mL/min) AND/OR *Sequential Compression Device (SCD) 5 or more Highest Order ONE of the following medications: *Heparin 5000 units SQ TID (Preferred with Epidurals) *Enoxaparin/Lovenox 40 mg SQ daily (WT < 150 kg, CrCl > 30 mL/min) *Enoxaparin/Lovenox 30 mg SQ daily (WT < 150 kg, CrCl > 10-29 mL/min) *Enoxaparin/Lovenox 30 mg SQ BID (WT < 150 kg, CrCl > 30 mL/min) AND *Sequential Compression Device (SCD) Assessment and Plan Assessment and Plan #1 Chest pain-admitted to chest pain center. Rule out with 2 sets of EKG and cardiac enzymes. Seen and evaluated by Dr. Rut De Guzman. After second set of enzymes, EKG, and improvement of hypertension, proceed with nuclear treadmill stress testing. If blood pressure not improved today, cardiac testing will be postponed until tomorrow morning until blood pressure within normal limits. Patient agreeable to plan of care. #2 Hypertension-clonidine 0.1mg PO x1 dose now, continue lisinopril 40 mg QD, continue to monitor. Proceed with nuclear exercise stress testing once SBP at least under 180, with 160 being optimal. #3 Hyperlipidemia-continue lovastatin #4 GERD-continue ranitidine Rupa Hickey Jun 27, 2017 13:25
[2017-06-27] MEDS ORDERED: cloNIDine HCL 0.1 MG TAB PO ONE (13:30)
[2017-06-27] MEDS ORDERED: CLON0.1T PO (14:09)
[2017-06-27] MEDS: LISINOPRIL 20 MG TAB PO SCH (14:15)
[2017-06-27] MEDS ORDERED: cloNIDine HCL 0.1 MG TAB PO PRN (15:00)
[2017-06-27 15:05] LABS: TROPONIN I LESS THAN 0.02 NG/ML (0.02-0.05)
[2017-06-27] MEDS ORDERED: NITROGLYCERIN 0.4 MG SL 25 TABS/BTL SL ONE (15:30)
[2017-06-27] MEDS: PRAVASTATIN SOD 80 MG TAB PO SCH (18:05)
[2017-06-27 18:22] LABS: TROPONIN I LESS THAN 0.02 NG/ML (0.02-0.05)
[2017-06-27] MEDS: amLODIPine BESYLATE 5 MG TAB PO SCH (22:18)
[2017-06-27] MEDS: SODIUM CHLORIDE 0.9% FLUSH 10 ML FLUSH IV FLUSH SCH (22:18)
[2017-06-27] MEDS: FAMOTIDINE 20 MG TAB PO SCH (22:21)
[2017-06-28] VITALS (8 sets, daily range): BP systolic 143–155; BP diastolic 64–74; PULSE 48–68; RESP 16–18; TEMP 97.8–98; O2SAT 96–97
[2017-06-28] MEDS: FAMOTIDINE 20 MG TAB PO SCH (08:30)
[2017-06-28] MEDS: amLODIPine BESYLATE 5 MG TAB PO SCH (08:31)
[2017-06-28] MEDS: LISINOPRIL 20 MG TAB PO SCH (08:31)
[2017-06-28] MEDS: PRAVASTATIN SOD 80 MG TAB PO SCH (08:31)
[2017-06-28] MEDS: SODIUM CHLORIDE 0.9% FLUSH 10 ML FLUSH IV FLUSH SCH (08:32)
[2017-06-28] MEDS ORDERED: ASPIRIN 325 MG TAB PO SCH (09:00)
[2017-06-28] MEDS ORDERED: ALPRAZolam 0.25 MG TAB PO ONE (09:00)
[2017-06-28] MEDS ORDERED: REGADENOSON INJ 0.4 MG/5 ML SYR ONE (09:26)
--- NOTE | 2017-06-28 12:45 | RADRPT ---
EXAM DATE/TIME: 06/28/2017 09:50 [facility] COMPARISON: No previous studies available for comparison. INDICATIONS : Chest pain. Angina. DOSE: 25.3 mCi Tc99m Myoview at stress. 8.8 mCi Tc99m Myoview at rest. 0.4 mg Lexiscan STRESS SYMPTOMS: Chest pounding, head pressure, nausea. EJECTION FRACTION: 67% MEDICAL HISTORY : Hypertension. Gastroesophageal reflux disease. SURGICAL HISTORY : Tonsillectomy. Hysterectomy. ENCOUNTER: Initial ACUITY: 3 days PAIN SCALE: 4/10 LOCATION: Left chest TECHNIQUE: The patient underwent pharmacologic stress with infusion of prescribed dose. Continuous ECG tracing was monitored during stress. Gated SPECT imaging was performed after stress and conventional SPECT i maging was performed at rest. The examination was performed on a SPECT/CT scanner, both attenuation and non-corrected datasets were reviewed. FINDINGS: DISTRIBUTION: The maximum perfused segment at stress is in the anterior wall. PERFUSION STUDY: The pattern of perfusion at stress is within normal limits. GATED STUDY: There is intact wall motion and thickening without hypokinetic or dyskinetic segments. CONCLUSION: No areas of ischemia are seen. RISK CATEGORY: Low (<1% Annual Mortality Rate) Michael Corbin MD on June 28, 2017 at 12:41 Board Certified Radiologist. This report was verified electronically.
--- NOTE | 2017-06-28 13:27 | HHI.DCPOC ---
Discharge Care Plan Diagnosis: (1) Chest pain Goals to Promote Your Health * To prevent worsening of your condition and complications * To maintain your health at the optimal level Directions to Meet Your Goals Take your medications as prescribed Follow your dietary instruction Follow activity as directed Keep your appointments as scheduled Take your immunizations and boosters as scheduled If your symptoms worsen call your PCP, if no PCP go to Urgent Care Center or Emergency Room Smoking is Dangerous to Your Health. Avoid second hand smoke Call the 24-hour hour crisis hotline for domestic abuse at Radha Kiser Jun 28, 2017 13:27
--- NOTE | 2017-06-29 13:17 | EKG ---
Date Performed: 06/27/2017 Time Performed: 17:21:13 PTAGE: 72 years EKG: SINUS BRADYCARDIA BORDERLINE ECG NO SIG CHANGE PREVIOUS TRACING : 06/27/2017 14.29 DOCTOR: Gilbert Summers Interpretating Date/Time 06/29/2017 13:17:32
--- NOTE | 2017-06-29 13:22 | EKG ---
Date Performed: 06/27/2017 Time Performed: 14:29:04 PTAGE: 72 years EKG: SINUS BRADYCARDIA POSSIBLE ANTERIOR MYOCARDIAL INFARCTION BORDERLINE ECG NO CHANGE PREVIOUS TRACING : 06/27/2017 10.27 DOCTOR: Gilbert Summers Interpretating Date/Time 07/01/2017 07:51:53
--- NOTE | 2017-06-29 13:24 | EKG ---
Date Performed: 06/27/2017 Time Performed: 10:27:48 PTAGE: 72 years EKG: SINUS BRADYCARDIA BORDERLINE ECG PREVIOUS TRACING : 12/10/2016 23.32 DOCTOR: Gilbert Summers Interpretating Date/Time 06/29/2017 13:23:47
--- NOTE | 2017-06-29 13:35 | TR ---
Date Performed: 06/28/2017 Time Performed: 10:14:56 DOCTOR: Gilbert Summers DRUG LIST: CLINICAL HISTORY: ANGINA REASON FOR TEST: REASON FOR ENDING: OBSERVATION: CONCLUSION: Lexiscan stress test was performed under standard four minute protocol. Radionuclide was injected one minute prior to ending the test. No electrocardiographic abormalities were present to suggest ischemia. Nuclear imaging and interpretation are pending. COMMENTS:
== END 2017-06-28 15:56 | disposition home or self-care (01) ==
LOC: NEPC 09:55 → NEDA 12:29 → NEPFCDU 16:36
PROVIDERS: ADMIT Internal Medicine Interventional Cardiology; ATTEND Internal Medicine Interventional Cardiology
DX: R07.9 Chest pain, unspecified (principal); Z79.899 Other long term (current) drug therapy; I10 Essential (primary) hypertension; K21.9 Gastro-esophageal reflux disease without esophagitis; E78.5 Hyperlipidemia, unspecified; I67.1 Cerebral aneurysm, nonruptured; Z82.49 Family history of ischemic heart disease and other diseases of the circulatory system; R20.0 Anesthesia of skin
CPT/HCPCS: 71010; 78452; 80048; 82550; 83735; 84484; 85025; 85610; 85730; 93005; 93017; 99285; A9502; G0378; J2785

== ENCOUNTER 2017-08-24 07:53 | Emergency (ER) | payer MEDICARE ==
[~2017-08-24] VITALS: Ht 154.9 cm; Wt 65.8 kg
[2017-08-24 07:58] VITALS: BP 178/81; PULSE 66; RESP 16; TEMP 97.9; O2SAT 96
[2017-08-24] MEDS ORDERED: PENI500T PO (08:09)
--- NOTE | 2017-08-24 08:10 | PD ---
HPI Chief Complaint: ENT Complaint Time Seen by Provider: 08:07 Travel History International Travel<30 days: No Contact w/Intl Traveler<30days: No Traveled to known affect area: No History of Present Illness HPI Patient presents with complaints of sore throat for 2-3 days. Denies nausea vomiting diarrhea or fever. Denies tobacco use. No new rashes. Unknown sick contacts. Denies cough. Denies any chest pain or shortness of breath. PFSH Past Medical History Heart Rhythm Problems: No Cardiac Catheterization: No Cardiovascular Problems: Yes High Cholesterol: Yes Chest Pain: Yes Congestive Heart Failure: No Diabetes: No Diminished Hearing: No Gastrointestinal Disorders: Yes (GERD) GERD: Yes Hypertension: Yes Neurologic: Yes (BRAIN ANEURYSM ) Respiratory: Yes (SEASONAL ALLERGIES) Immunizations Current: No Migraines: Yes Influenza Vaccination: No ?: Not Menopausal: Yes : 0 Para: 0 Miscarriage: 0 : 0 Past Surgical History Coronary Artery Bypass Graft: No Ear Surgery: Yes (L. - 1979 ) Gynecologic Surgery: Yes Hysterectomy: Yes Tonsillectomy: Yes Family History Family Myocardial Infarction: Yes (Siblings and mother) Social History Alcohol Use: No Tobacco Use: No Substance Use: No Allergies-Medications (Allergen,Severity, Reaction): Coded Allergies: Sulfa (Sulfonamide Antibiotics) (Unverified Allergy, Severe, RASH, 08/24/17 ) erythromycin base (Unverified Allergy, Severe, RASH, 08/24/17) sumatriptan (Unverified Allergy, Unknown, 08/24/17) adhesive (Unverified Adverse Reaction, Severe, "REDDENED SKIN", 08/24/17) tetanus toxoid, adsorbed (Unverified Adverse Reaction, Severe, INJECTION SITE SWELLS, 08/24/17) Reported Meds & Prescriptions Reported Meds & Active Scripts Active Reported Clonidine (Clonidine HCl) 0.1 Mg Tab 0.1 Mg PO Estrace (Estradiol) 1 Mg Tab 1 Mg PO DAILY Ranitidine (Ranitidine HCl) 150 Mg Tab 150 Mg PO BID Propranolol (Propranolol HCl) 10 Mg Tab 10 Mg PO Q12HR Lovastatin 40 Mg Tab 80 Mg PO DAILY Lisinopril 40 Mg Tab 40 Mg PO DAILY Review of Systems General / Constitutional: No: Fever Eyes: No: Visual changes HENT: Positive: Sore Throat, No: Headaches Cardiovascular: No: Chest Pain or Discomfort Respiratory: No: Shortness of Breath Gastrointestinal: No: Abdominal Pain Genitourinary: No: Dysuria Musculoskeletal: No: Pain Skin: No Rash Neurologic: No: Weakness Psychiatric: No: Depression Endocrine: No: Polydipsia Hematologic/Lymphatic: No: Easy Bruising Physical Exam Narrative GENERAL: Well-nourished, well-developed patient. SKIN: Focused skin assessment warm/dry. HEAD: Normocephalic. Throat is erythematous no adenopathy no exudate EYES: No scleral icterus. No injection or drainage. NECK: Supple, trachea midline. No JVD or lymphadenopathy. CARDIOVASCULAR: Regular rate and rhythm without murmurs, gallops, or rubs. RESPIRATORY: Breath sounds equal bilaterally. No accessory muscle use. GASTROINTESTINAL: Abdomen soft, non-tender, nondistended. MUSCULOSKELETAL: No cyanosis, or edema. BACK: Nontender without obvious deformity. No CVA tenderness. Data Data Last Documented VS Vital Signs Date Time Temp Pulse Resp B/P (MAP) Pulse Ox O2 Delivery O2 Flow Rate FiO2 08/24/17 07:58 97.9 66 16 178/81 (113) 96 MDM Medical Decision Making Medical Screen Exam Complete: Yes Emergency Medical Condition: Yes Differential Diagnosis Pharyngitis, laryngitis, influenza Narrative Course Assessment and plan discussed with patient at bedside Diagnosis Primary Impression: Pharyngitis Qualified Codes: J02.9 - Acute pharyngitis, unspecified Patient Instructions: General Instructions Additional Instructions: Rest fluids and Motrin, encourage some water gargles, consider vitamin C and zinc to boost immune system, follow-up with PCP, return to emergency room with any onset of new symptoms. Med/Other Pt SpecificInfo: Prescription(s) given Scripts Penicillin V Potassium (Penicillin V Potassium) 500 Mg Tab 500 MG PO Q8H for Infection for 10 Days, #30 TAB 0 Refills Prov: Jesus Cornelius MD 08/24/17 Disposition: 01 DISCHARGE HOME Condition: Good Jesus Cornelius MD Aug 24, 2017 08:10
== END 2017-08-24 08:21 | disposition home or self-care (01) ==
LOC: PHED 07:53
DX: J02.9 Acute pharyngitis, unspecified (principal); E78.00 Pure hypercholesterolemia, unspecified; K21.9 Gastro-esophageal reflux disease without esophagitis; I10 Essential (primary) hypertension; Z79.899 Other long term (current) drug therapy; Z88.2 Allergy status to sulfonamides; Z88.1 Allergy status to other antibiotic agents; Z88.8 Allergy status to other drugs, medicaments and biological substances; Z88.7 Allergy status to serum and vaccine
CPT/HCPCS: 99283

== ENCOUNTER 2018-04-10 16:56 | Observation (INO) ==
--- NOTE | 2018-04-10 17:54 | ED ---
HPI General Chief Complaint: Neuro Symptoms/Deficit Stated Complaint: Numbness In Mouth/Legs/Seen Earlier Time Seen by Provider: 04/10/18 17:45 Source: patient Mode of arrival: ambulatory Limitations: no limitations History of Present Illness HPI Narrative: 73-year-old female patient with history of previous CVA, hypertension, seen earlier today for chest pain, has had previous chest pain workup which was all negative. However, her blood pressure was fairly elevated , and she was given clonidine in the ER, and was released. Patient presents back to the ER today because she states that she went home and started to feel weak, weak in the legs, dizzy, felt like she was going to pass out and really feels like she is not well. She denies any current chest pains, but states she feels like she is not talking quite right and she checked her blood pressure and her systolic blood pressure was 86. Related Data Home Medications Medication Instructions Recorded Confirmed clopidogrel 1 tab PO DAILY 04/10/18 04/10/18 lisinopril 40 mg PO DAILY 04/10/18 04/10/18 lovastatin 80 mg PO QPM 04/10/18 04/10/18 propranolol 10 mg PO BID 04/10/18 04/10/18 ranitidine HCl 1 tab PO BID 04/10/18 04/10/18 Allergies Allergy/AdvReac Type Severity Reaction Status Date / Time erythromycin base Allergy Severe RASH Verified 04/10/18 10:11 Sulfa (Sulfonamide Allergy Severe RASH Verified 04/10/18 10:11 Antibiotics) sumatriptan Allergy Unknown RASH Verified 04/10/18 10:11 adhesive AdvReac Severe "REDDENED Verified 04/10/18 10:11 SKIN" tetanus toxoid, adsorbed AdvReac Severe Hives Verified 04/10/18 10:11 Review of Systems ROS: all other systems reviewed are negative [facility] Medical History Medical History GERD (gastroesophageal reflux disease) (Acute) High cholesterol (Acute) Hx of hysterectomy (Acute) Hypertension (Acute) TIA (transient ischemic attack) (Acute) Social History Social History Substance History: No History of Abuse Second Hand Smoke Exposure: No Smoking Status: Never smoker How Often Do You Have a Drink Containing Alcohol: Never Recent Travel in [facility] within the Last 8 Weeks: No Recent Out of Country Travel within the Last 8 Weeks: No Immunization History Tetanus Immunization: <5 Years Exam Narrative Exam Narrative: GENERAL: Well-developed elderly female patient currently and mild distress. Awake and oriented x3. SKIN: Focused skin assessment warm/dry. HEAD: Atraumatic. Normocephalic. EYES: Pupils equal and round. No scleral icterus. No injection or drainage. ENT: No nasal bleeding or discharge. Mucous membranes pink and moist. NECK: Trachea midline. No JVD. CARDIOVASCULAR: Regular rate and rhythm. No murmur appreciated. RESPIRATORY: No accessory muscle use. Clear to auscultation. Breath sounds equal bilaterally. GASTROINTESTINAL: Abdomen soft, non-tender, nondistended. Hepatic and splenic margins not palpable. MUSCULOSKELETAL: No obvious deformities. No clubbing. No cyanosis. No edema. NEUROLOGICAL: Awake and alert. Mild facial asymmetry. Motor grossly within normal limits. Normal speech. No pronator drift. PSYCHIATRIC: Appropriate mood and affect; insight and judgment normal. Course Initial Documented Vital Signs Temperature 97.9 F 04/10/18 17:00 Pulse Rate 64 04/10/18 17:00 Respiratory Rate 16 04/10/18 17:00 Blood Pressure 107/60 04/10/18 17:00 Pulse Oximetry 97 04/10/18 17:00 Last Documented Vital Signs Temperature 97.9 F 04/10/18 17:00 Pulse Rate 55 L 04/10/18 17:45 Respiratory Rate 16 04/10/18 17:45 Blood Pressure 97/46 L 04/10/18 17:45 Pulse Oximetry 98 04/10/18 17:45 Medical Decision Making [facility] Narrative Medical decision making narrative: Considering that she is returning, feeling worse, and her blood pressure is now dropped, my plan would be to admit her as an observation for further evaluation. Case was discussed with Dr. Migel Berg for admission. Medical Screen Exam Complete: Yes Emergency Medical Condition: Yes Differential Diagnosis Differential Diagnosis: Orthostasis versus overmedication versus TIA versus dysrhythmias Discharge Plan Discharge Disposition Patient Disposition: 30 Still Patient Discharge Condition Condition: Stable Discharge Details Anticipated Discharge Date: 04/10/18 Diagnosis: Atypical chest pain, Hypotension, Near syncope Physicians Team ED Provider: Anika Durbin Primary Care Provider: Primary Care Physici,No Rxs /Orders / Referrals /Forms Prescriptions: No Action lovastatin 40 mg Tablet 80 mg PO QPM RF: 0 clopidogrel 75 mg Tablet 1 tab PO DAILY RF: 0 ranitidine HCl 150 mg Tablet 1 tab PO BID RF: 0 propranolol 20 mg Tablet 10 mg PO BID RF: 0 lisinopril 40 mg Tablet 40 mg PO DAILY RF: 0 Discharge Interventions Interventions: Vital Signs Last Done: 04/10/18 17:45 Status ED Status: With Doctor
--- NOTE | 2018-04-10 18:32 | CT ---
EXAM DATE: 04/10/2018 6:08 PM EDT AGE/SEX: 73 years / Female INDICATIONS: Dizziness. Weakness. CLINICAL DATA: This is the patient's initial encounter. Patient reports that signs and symptoms have been present for 1 day and indicates a pain score of 0/10. MEDICAL/SURGICAL HISTORY: Cerebrovascular disease. Aneurysm, intracranial. Gastroesophageal reflu x disease. Hypertension. Hysterectomy. RADIATION DOSE: 44.65 CTDI (mGy) [place] [facility] [place]. . TECHNIQUE: CT of the head without contrast. Using automated exposure control and adjustment of the mA and/or kV according to patient size, radiation dose was kept as low as reasonably achievable to ob tain optimal diagnostic quality images. DICOM format image data is available electronically for revi ew and comparison. FINDINGS: Cerebrum: The ventricles are normal for age. No evidence of midline shift, mass lesion, hemorrhage or acute infarction. No extraaxial fluid collections are seen. Posterior Fossa: The cerebellum and brainstem are intact. The 4th ventricle is midline. The cerebe llopontine angle is unremarkable. Extracranial: The visualized portion of the orbits is intact. Skull: The calvaria is intact. No evidence of skull fracture. CONCLUSION: Negative noncontrast head CT. . Electronically signed by: Michael Corbin MD 04/10/2018 6:31 PM EDT
--- NOTE | 2018-04-10 19:49 | P.HP ---
History of Present Illness Service: Medicine Primary Care Physician: No Primary Care Physician History of Present Illness: Patient had woken this am and after taking her medications developed left sided chest pain with radiation to her left arm worse when she moved. She stated she also had left jaw pain that was intermittent but was not new for her.She had an Emergency room evaluation that was negative for cardiac etiology of her symptoms. However her blood pressure was elevated close to 200. The patient has clonidine .1 mg at home that she typically takes for SBP greater then 160. The patient was offered the choice to be admitted for better blood pressure control but she wanted to go home. She was given the clonidine .2mg and she did not want to wait till her blood pressure was regulated. She went home and had a sandwich then fell asleep sittin in her chair, she woke suddenly concerned about her blood pressure and when she went to get up she experience generalized weakness with difficulty walking and as if she may pass out. She took her blood pressure and it was 86 systolic. due to the low blood pressure and the general sensation of not feeling well she returned to the emergency room where her blood pressure was . By the time I saw her her blood pressure was 136/62 with a pulse of 55 and she stated she was feeling much better. She denied any chest pain or arm pain at this time. She has had a prior hx of TIA in November affecting her left hand which she states is now back to normal. She is not able to get MRI due to an implant in her ear. She had an admission with in the last year to the chest pain center with a negative work up. She cannot take aspirin due to GI upset but is on plavix for the TIA. She has a 3mm aneurysm for which she saw the neurosurgeon in the past and has been managed by imaging studies - Diagnosis (1) Atypical chest pain (2) Hypotension (3) Near syncope Review of Systems All other systems reviewed negative except as stated in HPI PMFSH - History History Provided By: Patient, Family Member, Medical Record - Medical History Medical History: Medical History (Last Updated 04/10/18 @ 19:38 by Doris Morrow MD) Ocular migraine GERD (gastroesophageal reflux disease) High cholesterol Hx of hysterectomy Hypertension TIA (transient ischemic attack) - Surgical History Surgical History: Surgical History (Last Reviewed 04/10/18 @ 19:38 by Doris Morrow MD) Hx of tonsillectomy S/P trigger finger release - Social History I have reviewed the patient's Social History: Yes - Tobacco History Second Hand Smoke Exposure: No Smoking Status: Never smoker - Alcohol History How Often Do You Have a Drink Containing Alcohol: Never - Substance Use History Substance History: No History of Abuse - Travel History Recent Travel in the [place] Within the Last 8 Weeks: No Recent Travel Out of the Country Within the Last 8 Weeks: No - Immunization History Tetanus Immunization: <5 Years Medications and Allergies Allergies Allergy/AdvReac Type Severity Reaction Status Date / Time erythromycin base Allergy Severe RASH Verified 04/10/18 10:11 Sulfa (Sulfonamide Allergy Severe RASH Verified 04/10/18 10:11 Antibiotics) sumatriptan Allergy Unknown RASH Verified 04/10/18 10:11 adhesive AdvReac Severe "REDDENED Verified 04/10/18 10:11 SKIN" tetanus toxoid, adsorbed AdvReac Severe Hives Verified 04/10/18 10:11 Home Medications Medication Instructions Recorded Confirmed Type clonidine HCl 0.1 mg PO DAILY PRN 04/10/18 04/10/18 History clopidogrel 1 tab PO DAILY 04/10/18 04/10/18 History lisinopril 40 mg PO DAILY 04/10/18 04/10/18 History lovastatin 80 mg PO QPM 04/10/18 04/10/18 History propranolol 10 mg PO BID 04/10/18 04/10/18 History ranitidine HCl 1 tab PO BID 04/10/18 04/10/18 History Exam Vital signs: Vital Signs 04/10/18 17:00 04/10/18 17:45 04/10/18 18:32 Temperature 97.9 F Pulse Rate 64 55 L 60 Respiratory Rate 16 16 18 Blood Pressure 107/60 97/46 L 158/63 H Pulse Oximetry 97 98 98 Intake & Output 04/10/18 04/10/18 04/11/18 06:59 18:59 06:59 Weight 65 kg - Constitutional no acute distress - Routine HEENT Exam Head: Present: normocephalic, atraumatic Eye: Present: EOMI, conjunctivae pink ENT: Present: mucous membranes moist - Routine Neck Exam Present: supple, full ROM - Routine Respiratory Exam Present: CTA bilaterally - Routine Cardiovascular Exam Present: RRR, bradycardia - Routine Abdominal Exam Present: soft, normoactive bowel sounds - Routine Extremities Exam Present: full ROM - Routine Skin Exam Present: intact - Routine Neurological Exam Present: alert, oriented X3, CN II-XII intact, moving all extremities, normal tone, normal speech Results - Imaging Impressions Head CT 04/10/18 17:55 CONCLUSION: Negative noncontrast head CT. . Glennrini VTE Risk Assessment Caprini VTE Risk Assessment: Moderate/High Risk (score >= 2) Caprini Risk Assessment Model: Point Value = 1 Point Value = 2 Point Value = 3 Point Value = 5 Age 41-60 Minor surgery BMI > 25 kg/m2 Swollen legs Varicose veins or History of unexplained or recurrent spontaneous Oral contraceptives or hormone replacement Sepsis (< 1 month) Serious lung disease, including pneumonia (< 1 month) Abnormal pulmonary function Acute myocardial infarction Congestive heart failure (< 1 month) History of inflammatory bowel disease Medical patient at bed rest Age 61-74 Arthroscopic surgery Major open surgery (> 45 min) Laparoscopic surgery (> 45 min) Malignancy Confined to bed (> 72 hours) Immobilizing plaster cast Central venous access Age >= 75 History of VTE Family history of VTE Factor V Leiden Prothrombin [id number] Lupus anticoagulant Anticardiolipin antibodies Elevated serum homocysteine Heparin-induced thrombocytopenia Other congenital or acquired thrombophilia Stroke (< 1 month) Elective arthroplasty Hip, pelvis, or leg fracture Acute spinal cord injury (< 1 month) Prophylaxis Regimen: Total Risk Factor Score Risk Level Prophylaxis Regimen 0-1 Low Early ambulation 2 Moderate Order ONE of the following: *Sequential Compression Device (SCD) *Heparin 5000 units SQ BID 3-4 Higher Order ONE of the following medications: *Heparin 5000 units SQ TID *Enoxaparin/Lovenox 40 mg SQ daily (WT < 150 kg, CrCl > 30 mL/min) *Enoxaparin/Lovenox 30 mg SQ daily (WT < 150 kg, CrCl > 10-29 mL/min) *Enoxaparin/Lovenox 30 mg SQ BID (WT < 150 kg, CrCl > 30 mL/min) AND/OR *Sequential Compression Device (SCD) 5 or more Highest Order ONE of the following medications: *Heparin 5000 units SQ TID (Preferred with Epidurals) *Enoxaparin/Lovenox 40 mg SQ daily (WT < 150 kg, CrCl > 30 mL/min) *Enoxaparin/Lovenox 30 mg SQ daily (WT < 150 kg, CrCl > 10-29 mL/min) *Enoxaparin/Lovenox 30 mg SQ BID (WT < 150 kg, CrCl > 30 mL/min) AND *Sequential Compression Device (SCD) Assessment and Plan - Assessment (1) Atypical chest pain Code(s): R07.89 - Other chest pain Status: Acute Plan: cardiac enzymes , ekgs (2) Hypotension Code(s): I95.9 - Hypotension, unspecified Status: Acute Onset Date: ~ Plan: Hold antihypertensives over night (3) Near syncope Code(s): R55 - Syncope and collapse Status: Acute Plan: hold antihypertensives over night - Plan Discussed Condition With: patient and (2) Hypotension Qualifiers: Hypotension type: hypotension due to drug Qualified Code(s): I95.2 - Hypotension due to drugs
[2018-04-10] MEDS ORDERED: Bisacodyl 10 MG Supp RECTAL PRN (19:52)
[2018-04-10] MEDS ORDERED: Acetaminophen 500 MG Tablet PO PRN (19:54)
[2018-04-10] MEDS: Famotidine 20 MG Tablet PO SCH (20:27)
[2018-04-10] MEDS: Senna/Docusate Sodium 8.6/50 MG Tablet PO SCH (20:29)
[2018-04-10 21:05] LABS: Creatine Kinase 45 U/L (26-192)
[2018-04-11 03:22] LABS: Creatine Kinase 39 U/L (26-192)
[2018-04-11] MEDS: Senna/Docusate Sodium 8.6/50 MG Tablet PO SCH (08:50)
[2018-04-11] MEDS: Famotidine 20 MG Tablet PO SCH (08:50)
[2018-04-11 09:33] VITALS: O2SAT 99
[2018-04-11] MEDS ORDERED: Lisinopril 20 MG Tablet PO SCH (10:00)
[2018-04-11 12:23] VITALS: BP 158/65; RESP 16; TEMP 96
--- NOTE | 2018-04-11 12:32 | ECG ---
Date Performed: 04/11/2018 Time Performed: 01:46:08 PTAGE: 73 years EKG: SINUS BRADYCARDIA BORDERLINE ECG Since PREVIOUS TRACING , no significant change noted PREVIOUS TRACIN04/10/2018 20.17 DOCTOR: Luis E Dsouza Interpretating Date/Time 04/11/2018 12:30:32
--- NOTE | 2018-04-11 12:32 | ECG ---
Date Performed: 04/10/2018 Time Performed: 20:17:31 PTAGE: 73 years EKG: SINUS BRADYCARDIA BORDERLINE ECG Since PREVIOUS TRACING , no significant change noted PREVIOUS TRACIN04/10/2018 10.03 DOCTOR: Luis E Dsouza Interpretating Date/Time 04/11/2018 12:30:22
[2018-04-11 13:17] VITALS: PULSE 62
--- NOTE | 2018-04-11 15:42 | P.HP ---
History of Present Illness Primary Care Physician: No Primary Care Physician History of Present Illness: Patient had woken this am and after taking her medications developed left sided chest pain with radiation to her left arm worse when she moved. She stated she also had left jaw pain that was intermittent but was not new for her.She had an Emergency room evaluation that was negative for cardiac etiology of her symptoms. However her blood pressure was elevated close to 200. The patient has clonidine .1 mg at home that she typically takes for SBP greater then 160. The patient was offered the choice to be admitted for better blood pressure control but she wanted to go home. She was given the clonidine .2mg and she did not want to wait till her blood pressure was regulated. She went home and had a sandwich then fell asleep sittin in her chair, she woke suddenly concerned about her blood pressure and when she went to get up she experience generalized weakness with difficulty walking and as if she may pass out. She took her blood pressure and it was 86 systolic. due to the low blood pressure and the general sensation of not feeling well she returned to the emergency room where her blood pressure was . By the time I saw her her blood pressure was 136/62 with a pulse of 55 and she stated she was feeling much better. She denied any chest pain or arm pain at this time. She has had a prior hx of TIA in November affecting her left hand which she states is now back to normal. She is not able to get MRI due to an implant in her ear. She had an admission with in the last year to the chest pain center with a negative work up. She cannot take aspirin due to GI upset but is on plavix for the TIA. She has a 3mm aneurysm for which she saw the neurosurgeon in the past and has been managed by imaging studies - Diagnosis (1) Atypical chest pain (2) Hypotension (3) Near syncope PMFSH - History History Provided By: Patient, Family Member, Medical Record - Medical History Medical History: Medical History (Last Reviewed 04/11/18 @ 11:09 by Gabby Figueroa) Ocular migraine GERD (gastroesophageal reflux disease) High cholesterol Hx of hysterectomy Hypertension TIA (transient ischemic attack) - Surgical History Surgical History: Surgical History (Last Reviewed 04/11/18 @ 11:09 by Gabby Figueroa) Hx of tonsillectomy S/P trigger finger release - Tobacco History Second Hand Smoke Exposure: No Smoking Status: Never smoker - Alcohol History How Often Do You Have a Drink Containing Alcohol: Never - Substance Use History Substance History: No History of Abuse - Travel History Recent Travel in the [place] Within the Last 8 Weeks: No Recent Travel Out of the Country Within the Last 8 Weeks: No - Immunization History Tetanus Immunization: <5 Years Medications and Allergies Active Medications: Active Medications Acetaminophen (Tylenol) 500 mg PO Q4H PRN PRN Reason: HEADACHE Al Hydroxide/Mg Hydroxide (Milk Of Magnesia Liq) 30 ml PO Q12H PRN PRN Reason: Mild Constipation Bisacodyl (Dulcolax Supp) 10 mg RECTAL DAILY PRN PRN Reason: SEVERE CONSITIPATION Clopidogrel Bisulfate (Plavix) 75 mg PO DAILY [facility] Last Admin: 04/11/18 08:50 Dose: 75 mg Famotidine (Pepcid) 20 mg PO BID [facility] Last Admin: 04/11/18 08:50 Dose: 20 mg Lactulose (Lactulose Liq) 30 ml PO DAILY PRN PRN Reason: SEVERE CONSITIPATION Lisinopril (Prinivil) 40 mg PO DAILY [facility] Last Admin: 04/11/18 10:01 Dose: 40 mg Pravastatin Sodium (Pravachol) 80 mg PO QPM [facility] Propranolol HCl (Inderal) 10 mg PO BID [facility] Last Admin: 04/11/18 10:00 Dose: 10 mg Senna/Docusate Sodium (Sahara-Colace) 1 tab PO BID [facility] Last Admin: 04/11/18 08:50 Dose: 1 tab Sennosides (Senokot) 17.2 mg PO Q12H PRN PRN Reason: Moderate Constipation Sodium Chloride (Ns Flush) 2 ml IV.FLUSH PRN PRN PRN Reason: FLUSH AFTER USING IV ACCESS Sodium Chloride (Ns Flush) 2 ml IV.FLUSH BID [facility] Last Admin: 04/11/18 08:51 Dose: 2 ml Allergies Allergy/AdvReac Type Severity Reaction Status Date / Time erythromycin base Allergy Severe RASH Verified 04/10/18 10:11 Sulfa (Sulfonamide Allergy Severe RASH Verified 04/10/18 10:11 Antibiotics) sumatriptan Allergy Unknown RASH Verified 04/10/18 10:11 adhesive AdvReac Severe "REDDENED Verified 04/10/18 10:11 SKIN" tetanus toxoid, adsorbed AdvReac Severe Hives Verified 04/10/18 10:11 Home Medications Medication Instructions Recorded Confirmed Type clonidine HCl 0.1 mg PO DAILY PRN 04/10/18 04/10/18 History clopidogrel 1 tab PO DAILY 04/10/18 04/10/18 History lisinopril 40 mg PO DAILY 04/10/18 04/10/18 History lovastatin 80 mg PO QPM 04/10/18 04/10/18 History propranolol 10 mg PO BID 04/10/18 04/10/18 History ranitidine HCl 1 tab PO BID 04/10/18 04/10/18 History Exam Vital signs: Vital Signs 04/10/18 17:00 04/10/18 17:45 04/10/18 18:32 Temperature 97.9 F Pulse Rate 64 55 L 60 Respiratory Rate 16 16 18 Blood Pressure 107/60 97/46 L 158/63 H Pulse Oximetry 97 98 98 04/10/18 20:00 04/10/18 20:35 04/10/18 23:58 Temperature 96.9 F L 97.0 F L Pulse Rate 51 L 59 L 60 Respiratory Rate 16 16 16 Blood Pressure 159/70 H 148/63 H 150/65 H Pulse Oximetry 99 100 99 04/11/18 04:00 04/11/18 08:00 04/11/18 12:00 Temperature 97.1 F L 96.6 F L 96.0 F L Pulse Rate 48 L 63 56 L Respiratory Rate 16 14 16 Blood Pressure 139/63 168/72 H 158/65 H Pulse Oximetry 98 99 99 04/11/18 13:16 Temperature Pulse Rate 62 Respiratory Rate Blood Pressure Pulse Oximetry Intake & Output 04/10/18 04/11/18 04/11/18 18:59 06:59 18:59 Weight 65 kg 67.2 kg Other: # Voids 3 Weight On Admission 67.2 kg Results - Labs Labs: Laboratory Results - last 24 hr 04/10/18 04/11/18 20:30 02:16 Total Creatine Kinase 45 39 Troponin I Less than 0.02 L Less than 0.02 L - Imaging Impressions Head CT 04/10/18 17:55 CONCLUSION: Negative noncontrast head CT. . Caprini VTE Risk Assessment Caprini VTE Risk Assessment: Moderate/High Risk (score >= 2) Caprini Risk Assessment Model: Point Value = 1 Point Value = 2 Point Value = 3 Point Value = 5 Age 41-60 Minor surgery BMI > 25 kg/m2 Swollen legs Varicose veins or History of unexplained or recurrent spontaneous Oral contraceptives or hormone replacement Sepsis (< 1 month) Serious lung disease, including pneumonia (< 1 month) Abnormal pulmonary function Acute myocardial infarction Congestive heart failure (< 1 month) History of inflammatory bowel disease Medical patient at bed rest Age 61-74 Arthroscopic surgery Major open surgery (> 45 min) Laparoscopic surgery (> 45 min) Malignancy Confined to bed (> 72 hours) Immobilizing plaster cast Central venous access Age >= 75 History of VTE Family history of VTE Factor V Leiden Prothrombin [id number] Lupus anticoagulant Anticardiolipin antibodies Elevated serum homocysteine Heparin-induced thrombocytopenia Other congenital or acquired thrombophilia Stroke (< 1 month) Elective arthroplasty Hip, pelvis, or leg fracture Acute spinal cord injury (< 1 month) Prophylaxis Regimen: Total Risk Factor Score Risk Level Prophylaxis Regimen 0-1 Low Early ambulation 2 Moderate Order ONE of the following: *Sequential Compression Device (SCD) *Heparin 5000 units SQ BID 3-4 Higher Order ONE of the following medications: *Heparin 5000 units SQ TID *Enoxaparin/Lovenox 40 mg SQ daily (WT < 150 kg, CrCl > 30 mL/min) *Enoxaparin/Lovenox 30 mg SQ daily (WT < 150 kg, CrCl > 10-29 mL/min) *Enoxaparin/Lovenox 30 mg SQ BID (WT < 150 kg, CrCl > 30 mL/min) AND/OR *Sequential Compression Device (SCD) 5 or more Highest Order ONE of the following medications: *Heparin 5000 units SQ TID (Preferred with Epidurals) *Enoxaparin/Lovenox 40 mg SQ daily (WT < 150 kg, CrCl > 30 mL/min) *Enoxaparin/Lovenox 30 mg SQ daily (WT < 150 kg, CrCl > 10-29 mL/min) *Enoxaparin/Lovenox 30 mg SQ BID (WT < 150 kg, CrCl > 30 mL/min) AND *Sequential Compression Device (SCD) Assessment and Plan - Assessment (1) Atypical chest pain Code(s): R07.89 - Other chest pain Status: Acute Plan: cardiac enzymes , ekgs (2) Hypotension Code(s): I95.9 - Hypotension, unspecified Status: Acute Onset Date: ~ Plan: Hold antihypertensives over night (3) Near syncope Code(s): R55 - Syncope and collapse Status: Acute Plan: hold antihypertensives over night (2) Hypotension Qualifiers: Hypotension type: hypotension due to drug Qualified Code(s): I95.2 - Hypotension due to drugs
--- NOTE | 2018-04-11 15:54 | P.PN ---
Subjective Interval history: no complaints, no chest pain, ambulated well with PT Physical Exam Vital signs: Vital Signs 04/10/18 17:00 04/10/18 17:45 04/10/18 18:32 Temperature 97.9 F Pulse Rate 64 55 L 60 Respiratory Rate 16 16 18 Blood Pressure 107/60 97/46 L 158/63 H Pulse Oximetry 97 98 98 04/10/18 20:00 04/10/18 20:35 04/10/18 23:58 Temperature 96.9 F L 97.0 F L Pulse Rate 51 L 59 L 60 Respiratory Rate 16 16 16 Blood Pressure 159/70 H 148/63 H 150/65 H Pulse Oximetry 99 100 99 04/11/18 04:00 04/11/18 08:00 04/11/18 12:00 Temperature 97.1 F L 96.6 F L 96.0 F L Pulse Rate 48 L 63 56 L Respiratory Rate 16 14 16 Blood Pressure 139/63 168/72 H 158/65 H Pulse Oximetry 98 99 99 04/11/18 13:16 Temperature Pulse Rate 62 Respiratory Rate Blood Pressure Pulse Oximetry Intake & Output 04/10/18 04/11/18 04/11/18 18:59 06:59 18:59 Weight 65 kg 67.2 kg Other: # Voids 3 Weight On Admission 67.2 kg - Constitutional no acute distress - Routine HEENT Exam Head: Present: normocephalic, atraumatic Eye: Present: EOMI - Routine Neck Exam Present: supple - Routine Respiratory Exam Present: CTA bilaterally - Routine Cardiovascular Exam Present: bradycardia - Routine Abdominal Exam Present: soft, normoactive bowel sounds - Routine Skin Exam Present: intact - Routine Neurological Exam Present: alert, oriented X3 - Routine Psychiatric Exam Present: normal affect, normal thought process Results - Labs Laboratory Results - last 24 hr 04/10/18 04/11/18 20:30 02:16 Total Creatine Kinase 45 39 Troponin I Less than 0.02 L Less than 0.02 L - Imaging Impressions Head CT 04/10/18 17:55 CONCLUSION: Negative noncontrast head CT. . Assessment and Plan - Assessment (1) Atypical chest pain Code(s): R07.89 - Other chest pain Status: Resolved Onset Date: ~04/10/18 Plan: cardiac enzymes , ekg were negative, (2) Hypotension Code(s): I95.9 - Hypotension, unspecified Status: Resolved Onset Date: ~06/16 Plan: Medications held over night and resumed this am. Blood pressure has remained up. We discussed that at times her blood pressure seem to elevate and she does admit to anxiety and having been on anxiolytics. This is something she may address with her pcp. She is on propanolon for her ocular migraines and we discussed how this lowered her heart rate and she may want to consider a trial off the medication to see if she still needs it. (3) Near syncope Code(s): R55 - Syncope and collapse Status: Resolved - Plan Discharge home today. She was a prior patient of Dr Bhat who has retired. She would like to return to Dr Lott who cared for her in the past . Will be discharged home on her current medication regimen and will try to follow up with Dr Lott to adjust her medications. If she is unable to see him she will follow up with my office (2) Hypotension Qualifiers: Hypotension type: hypotension due to drug Qualified Code(s): I95.2 - Hypotension due to drugs
[2018-04-11] MEDS ORDERED: Famotidine 20 MG Tablet PO SCH (21:00)
--- NOTE | 2018-04-12 14:28 | ECG ---
Date Performed: 04/11/2018 Time Performed: 11:36:34 PTAGE: 73 years EKG: SINUS BRADYCARDIA BORDERLINE ECG Since PREVIOUS TRACING , no significant change noted PREVIOUS TRACIN04/11/2018 01.46 DOCTOR: Luis E Dsouza Interpretating Date/Time 04/12/2018 14:27:04
== END 2018-04-11 17:38 | disposition home or self-care (01) ==
LOC: PHED 16:56 → PHEDA 16:56 → PH3 21:32
PROVIDERS: ADMIT Legal Medicine; ATTEND Legal Medicine
DX: F41.9 Anxiety disorder, unspecified; I95.2 Hypotension due to drugs; E78.00 Pure hypercholesterolemia, unspecified; Z79.02 Long term (current) use of antithrombotics/antiplatelets; R07.89 Other chest pain; Z88.2 Allergy status to sulfonamides; K21.9 Gastro-esophageal reflux disease without esophagitis; Z90.710 Acquired absence of both cervix and uterus; I10 Essential (primary) hypertension; R94.31 Abnormal electrocardiogram [ECG] [EKG]